=== PATIENT | female | born 1950 ===

== ENCOUNTER 2017-04-01 11:56 | Observation (INO) | payer MEDICARE, MEDICAID ==
[2017-04-01 12:10] VITALS: BMI 28.5
[2017-04-01 12:40] LABS: BASO % 0.4 % (0.0-2.0); EOS # 0.1 K/uL (0.0-0.7); EOS % 0.8 % (0.0-4.0); HEMATOCRIT 31.3 % (34.0-47.0); LYMPH # 1.9 K/uL (1.0-4.3); LYMPH % 21.8 % (20.0-40.0); MEAN CELL VOLUME 72.4 fl (81.0-99.0); MEAN CORPUSCULAR HEMOGLOBIN 22.9 pg (27.0-31.0); MEAN CORPUSCULAR HGB CONC 31.7 g/dL (33.0-37.0); MEAN PLATELET VOLUME 7.7 fl (7.2-11.7); MONO # 0.8 K/uL (0.0-0.8); MONO % 8.8 % (0.0-10.0); NEUT # 5.8 K/uL (1.8-7.0); NEUT % 68.2 % (50.0-75.0); NRBC % 0.1 % (0.0-0.0); RED CELL DISTRIBUTION WIDTH 17.4 % (11.5-14.5); WHITE BLOOD COUNT 8.6 K/uL (4.8-10.8)
--- NOTE | 2017-04-01 12:40 | ED PDOC ---
HPI: General Adult Time Seen by Provider: 04/01/17 11:56 Chief Complaint (Nursing): Weakness/Neurological Deficit Chief Complaint (Provider): Weakness/Neurological Deficit History Per: Patient History/Exam Limitations: no limitations Onset/Duration Of Symptoms: Days (x2 days) Current Symptoms Are (Timing): Still Present Additional Complaint(s): 66 y/o female with a past medical history of diabetes, hypertension, and hypercholesterolemia who presents to the emergency department with a complaint of intermittent chest discomfort describes as a pressure-like sensation x2 days. Associated with generalized fatigue, left arm pain and right-sided facial numbness. Denies history of myocardial infraction, changes in speech or gait and weakness in the arms or legs. NIHSS Stroke Scale - Date/Time Evaluation Performed Date Performed: 04/01/17 When Was NIHSS Performed: Baseline - How Severe is the Stroke Level of Consciousness: 0=Alert LOC to Questions: 0=Both comments correct LOC to commands: 0=Obeys both correctly Visual: 0=No visual loss Facial: 0=Normal Motor Arm - Left: 0=No drift Motor Arm - Right: 0=No drift Motor Leg - Left: 0=No drift Motor Leg - Right: 0=No drift Limb Ataxia: 0=Absent Sensory: 0=Normal Best Language: 0=No aphasia Dysarthia: 0=Normal articulation Extinction & Inattention (Neglect): 0=Normal, no object Past Medical History Reviewed: Historical Data, Nursing Documentation, Vital Signs Vital Signs: Last Vital Signs Temp 97 F L 04/01/17 12:09 Pulse 89 04/01/17 12:09 Resp BP 151/71 H 04/01/17 12:09 Pulse Ox 100 04/01/17 13:55 - Medical History PMH: Anemia, Arthritis, Asthma, Bronchitis, COPD, Diverticulitis, Emphysema, HTN , Hypercholesterolemia, Pneumonia - Surgical History Surgical History: Endoscopy (05/07/14) Denies: Appendectomy, CABG, Carotid Endarterectomy, Cholecystectomy, Coronary Stent, Pacemaker, Tonsillectomy Other surgeries: Patient stated " I had over 17 surgies including left knee, hysterectomy, and back surgery." - Family History Family History: States: Unknown Family Hx - Social History Current smoker - smoking cessation education provided: No Alcohol: None Drugs: Denies - Home Medications Home Medications: Ambulatory Orders Medication Instructions Recorded Clonazepam [Klonopin] 1 tab PO BID #0 tablet 03/22/16 Linaclotide [Linzess] 1 tab PO DAILY #0 capsule 03/22/16 Montelukast [Singulair] 1 tab PO DAILY #0 tab 03/22/16 Omeprazole 20 mg PO DAILY #0 capsule. 03/22/16 SITagliptin [Januvia] 1 tab PO DAILY #0 tab 03/22/16 Diltiazem HCl [Cartia Xt] 1 tab PO BID 08/31/16 Fluticasone/Salmeterol 250/50 1 puff IH Q12 08/31/16 [Advair Diskus 250/50] Gabapentin [Neurontin] 400 mg PO TID 08/31/16 Lactulose [Generlac] 15 mg PO TID 08/31/16 MetFORMIN [glucoPHAGE] 1,000 mg PO BID 08/31/16 Valsartan/Hydrochlorothiazide 1 tab PO DAILY 08/31/16 [Valsartan-Hctz 320-25 mg Tab] traMADol [Ultram] 1 tab PO BID 08/31/16 oxyCODONE/Acetaminophen [Percocet 1 tab PO Q6 PRN #20 tab 09/02/16 5/325 mg Tab] traMADol [Ultram] 50 mg PO BID #60 tab 09/02/16 - Allergies Allergies/Adverse Reactions: Allergies Allergy/AdvReac Type Severity Reaction Status Date / Time No Known Allergies Allergy Verified 10/20/15 14:05 Review of Systems ROS Statement: Except As Marked, All Systems Reviewed And Found Negative Constitutional: Positive for: Other (Generalized fatigue) Cardiovascular: Positive for: Other (Chest pressure discomfort) Musculoskeletal: Positive for: Arm Pain (Left), Other (Right-sided facial numbness) Neurological: Negative for: Weakness (Of the arms or legs), Other (Abnormal speech or gait. ) Physical Exam - Reviewed Nursing Documentation Reviewed: Yes Vital Signs Reviewed: Yes - Physical Exam Appears: Positive for: Non-toxic, No Acute Distress Head Exam: Positive for: ATRAUMATIC, NORMAL INSPECTION, NORMOCEPHALIC Skin: Positive for: Normal Color, Warm, Dry Eye Exam: Positive for: Normal appearance, EOMI, PERRL Neck: Positive for: Normal, Supple Cardiovascular/Chest: Positive for: Regular Rate, Rhythm. Negative for: Murmur Respiratory: Positive for: Normal Breath Sounds. Negative for: Accessory Muscle Use, Respiratory Distress Gastrointestinal/Abdominal: Positive for: Normal Exam, Soft. Negative for: Tenderness Extremity: Positive for: Normal ROM, Other (5/5 strength of all extremities. ). Negative for: Tenderness, Pedal Edema, Swelling Neurologic/Psych: Positive for: Alert, sand drier II-XII (Intact. Finger to nose test intact. ), Oriented (x3), Cerebellar Tests (Normal), Gait (Steady), Other ( Normal speech. Speaking in full sentences. ) - Laboratory Results Result Diagrams: 04/01/17 12:30 04/01/17 12:30 - ECG ECG Rhythm: Positive for: Normal QRS, Normal ST Segment, Sinus Rhythm (Normal at 75 bpm). Negative for: ST/T Changes, Nonspecific Changes O2 Sat by Pulse Oximetry: 100 (RA) Pulse Ox Interpretation: Normal - Progress ED Course And Treament: ASA 324 MG X 1 DOSE D/W DR. BREAUX ADMIT TO HER SERVIE TELE OBS Medical Decision Making Medical Decision Making: Time: 12:23 Initial impression: Chest discomfort with left arm pain and right sided facial numbness Initial plan: --Head CT --EKG --BMP --Magnesium --Troponin I --CBC w/ diff --Chest x-ray --Reevaluation Time: 13:06 --Aspirin 324 mg PO Time: 12:54 --Head CT FINDINGS: HEMORRHAGE: No intracranial hemorrhage. BRAIN: Will-white matter differentiation is preserved. There is no mass, mass effect or abnormal extra-axial fluid collection. There are mild chronic microangiopathic changes. There is no territorial infarction. VENTRICLES: The ventricles are normal in size, shape and configuration. CALVARIUM: The skull base and calvarium are normal. There is hyperostosis frontalis interna. PARANASAL SINUSES: Predominantly clear. MASTOID AIR CELLS: Predominantly clear. OTHER FINDINGS: None. IMPRESSION: No acute intracranial abnormality. If there is a persistent focal neurologic deficit and an ongoing clinical concern for acute infarction, an MRI of the brain without intravenous contrast would be a more sensitive modality for evaluation of hyperacute/acute ischemic infarction. Mild chronic microangiopathic changes. Time: 13:21 --Chest x-ray FINDINGS: LUNGS: The lungs are well inflated and clear. PLEURA: No significant pleural effusion identified, no pneumothorax apparent. CARDIOVASCULAR: Normal. OSSEOUS STRUCTURES: No significant abnormalities. VISUALIZED UPPER ABDOMEN: Normal. OTHER FINDINGS: None. IMPRESSION: No active pulmonary disease. Time: 1340 --Spoke to Dr. Zimmerman, request possible for admission. Time: 13:51 --Cardiology Consult Routine under Dr. Humberto Serrano for Chest pain Time: 13:52 --Admit to hospital routine: Observation in Telemetry for chest pain and facial numbness right under the care of Dr. Breaux (Hospitalist). Scribe Attestation: Documented by Nichole Munguia, acting as a scribe for Willy Samano MD. Provider Scribe Attestation: All medical record entries made by the Scribe were at my direction and personally dictated by me. I have reviewed the chart and agree that the record accurately reflects my personal performance of the history, physical exam, medical decision making, and the department course for this patient. I have also personally directed, reviewed, and agree with the discharge instructions and disposition. Disposition - Clinical Impression Clinical Impression: Chest pain, Facial paresthesia - Patient ED Disposition Is Patient to be Admitted: Yes (Admitted to Dr. Breaux for observation in Telemetry ) - Disposition Disposition Time: 13:52 Condition: STABLE Forms: [facility] [facility] (Polish)
[2017-04-01 12:46] LABS: BLOOD UREA NITROGEN 15 mg/dl (7-17); CALCIUM 10.6 mg/dL (8.4-10.2); CARBON DIOXIDE 22 mmol/L (22-30); CHLORIDE 102 mmol/L (98-107); GFR AFRICAN-AMERICAN > 60; GLUCOSE,RANDOM 103 mg/dL (65-105); MAGNESIUM 2.1 MG/DL (1.6-2.3); POTASSIUM 4.7 MMOL/L (3.6-5.0); SODIUM 138 mmol/l (132-148)
--- NOTE | 2017-04-01 13:01 | CT ---
PROCEDURE: CT HEAD WITHOUT CONTRAST. HISTORY: facial numbness right sided COMPARISON: None available. TECHNIQUE: Axial computed tomography images were obtained through the head/brain without intravenous contrast. Radiation dose: Total exam DLP = 804.27. MGy-cm. This CT exam was performed using one or more of the following dose reduction techniques: Automated exposure control, adjustment of the mA and/or kV according to patient size, and/or use of iterative reconstruction technique. FINDINGS: HEMORRHAGE: No intracranial hemorrhage. BRAIN: Will-white matter differentiation is preserved. There is no mass, mass effect or abnormal extra-axial fluid collection. There are mild chronic microangiopathic changes. There is no territorial infarction. VENTRICLES: The ventricles are normal in size, shape and configuration. CALVARIUM: The skull base and calvarium are normal. There is hyperostosis frontalis interna. PARANASAL SINUSES: Predominantly clear. MASTOID AIR CELLS: Predominantly clear. OTHER FINDINGS: None. IMPRESSION: No acute intracranial abnormality. If there is a persistent focal neurologic deficit and an ongoing clinical concern for acute infarction, an MRI of the brain without intravenous contrast would be a more sensitive modality for evaluation of hyperacute/acute ischemic infarction. Mild chronic microangiopathic changes.
--- NOTE | 2017-04-01 13:23 | RAD ---
HISTORY: Chest pain COMPARISON: 03/21/2016. FINDINGS: LUNGS: The lungs are well inflated and clear. PLEURA: No significant pleural effusion identified, no pneumothorax apparent. CARDIOVASCULAR: Normal. OSSEOUS STRUCTURES: No significant abnormalities. VISUALIZED UPPER ABDOMEN: Normal. OTHER FINDINGS: None. IMPRESSION: No active pulmonary disease.
--- NOTE | 2017-04-01 13:53 | CP.PCM.HP ---
History of Present Illness - History of Present Illness History of Present Illness: CC: shortness of breath HPI: 66F PMH known COPD asthma DM HTN dyslipdemia SBO presents with a two day history of 2 episodes of mild pressure like nonradiating chest pain that lasted for a few moments each time, associated with fatigue. Patient states she also had mild paresthesia on her right cheek, she has a history of cervical radiculopathy. No other complaints at this time, HD stable, no acute distress ROS: per HPI 12 systems reviewed and negative PMH: COPD asthma HTN dyslipdemia SBO PSH: hemicolectomy? , hysterectomy, multiple orthopedic surgeries FH:denies SH: denies tobacco, ETOH, IVDU Meds: as below Allergies: NKDA PMD Dr. Zimmerman Vitals: reviewed and stable Temp Pulse Resp BP Pulse Ox 97 F L 89 151/71 H 100 04/01/17 12:09 04/01/17 12:09 04/01/17 12:09 04/01/17 13:52 Exam: GENERAL APPEARANCE: Well developed, well nourished, alert and cooperative HEAD: normocephalic.atraumatic. EYES: PERRL, EOMI. vision is grossly intact. EARS: External auditory canals clear, hearing grossly intact. NOSE: No nasal discharge. THROAT: Oral cavity and pharynx normal. No inflammation, swelling, exudate, or lesions. NECK: Neck supple, non-tender without lymphadenopathy, masses or thyromegaly. CARDIAC: Normal S1 and S2.Rhythm is regular. There is no peripheral edema, cyanosis or pallor. Extremities are warm and well perfused. LUNGS:+rhonchi, no respiratory distress ABDOMEN: Positive bowel sounds. Soft, nondistended, nontender. No guarding or rebound. No masses. MUSCULOSKELETAL: Adequately aligned spine. ROM intact spine and extremities. No joint erythema or tenderness. Normal muscular development. BACK: Examination of the spine reveals normal posture, no spinal deformity, symmetry of spinal muscles, without tenderness, decreased range of motion or muscular spasm. EXTREMITIES: No significant deformity or joint abnormality. No edema. Peripheral pulses intact. No varicosities. NEUROLOGICAL:Strength and sensation symmetric and intact throughout. Reflexes 2 + throughout. SKIN: Skin normal color, texture and turgor with no lesions or eruptions. PSYCHIATRIC: normal mood, normal affect Labs:as below 04/01/17 12:30 04/01/17 12:30 Rads: CXR no active disease EKG: NSR, no acute ischemia or infarct Clonazepam [Klonopin] 1 tab PO BID MetFORMIN [glucOPHAGE] 1,000 mg PO BID 04/01/17 21:00 Fluticasone/Salmeterol 250/50 [Advair Diskus 250/50] 1 puff IH Q12 04/02/17 09:00 Aspirin [Aspirin Chewable] 81 mg PO DAILY Atorvastatin [Lipitor] 40 mg PO DAILY Clopidogrel [Plavix] 75 mg PO DAILY Enoxaparin [Lovenox] 40 mg SC DAILY Linaclotide [Linzess] 1 tab PO DAILY Montelukast [Singulair] 1 mg PO DAILY Valsartan/Hydrochlorothiazide [Valsartan-Hctz 320-25 mg Tab] 1 tab PO DAILY diltiaZEM CD [Cardizem CD] 1 mg PO DAILY Assessment: 66F PMH known COPD asthma DM HTN dyslipdemia SBO presents with a two day history of 2 episodes of mild pressure like nonradiating chest pain that lasted for a few moments each time, associated with fatigue. Patient states she also had mild paresthesia on her right cheek, she has a history of cervical radiculopathy. No other complaints at this time, HD stable, no acute distress Plan: CHEST PAIN no active chest pain ASA, Plavix, Statin Trend cardiac enzymes EKG in AM. No acute changes on EKG COPD stable continue Advair, Singulair, broncodilators as necessary HTN continue cardizem, valsartan HYPERLIPIDEMIA continue statin DM continue Metformin ISS VTE ppx Lovenox Present on Admission - Present on Admission Any Indicators Present on Admission: No Past Patient History - Infectious Disease Hx of Infectious Diseases: None - Past Medical History & Family History Past Medical History?: Yes - Past Social History Alcohol: None Drugs: Denies - CARDIAC Hx Hypercholesterolemia: Yes Hx Hypertension: Yes Hx Pacemaker: No - PULMONARY Hx Asthma: Yes Hx Bronchitis: Yes Hx Chronic Obstructive Pulmonary Disease (COPD): Yes Hx Emphysema: Yes Hx Pneumonia: Yes - NEUROLOGICAL Hx Neurological Disorder: No - HEENT Hx HEENT Problems: No Hx Cataracts: Yes - HEMATOLOGICAL/ONCOLOGICAL Hx Anemia: Yes - INTEGUMENTARY Hx Dermatological Problems: No - MUSCULOSKELETAL/RHEUMATOLOGICAL Hx Arthritis: Yes - GASTROINTESTINAL Hx Diverticulitis: Yes - GENITOURINARY/GYNECOLOGICAL Hx Genitourinary Disorders: Yes (S/P Sling procedure for cystoceles) - PSYCHIATRIC Hx Emotional Abuse: No Hx Physical Abuse: No Hx Substance Use: No - SURGICAL HISTORY Hx Appendectomy: No Hx Carotid Endarterectomy: No Hx Cholecystectomy: No Hx Coronary Artery Bypass Graft: No Hx Coronary Stent: No Hx Tonsillectomy: No - ANESTHESIA Hx Anesthesia: Yes Hx Anesthesia Reactions: No Hx Malignant Hyperthermia: No Meds Allergies/Adverse Reactions: Allergies Allergy/AdvReac Type Severity Reaction Status Date / Time No Known Allergies Allergy Verified 10/20/15 14:05 Results - Vital Signs Recent Vital Signs: Last Vital Signs Temp 97 F L 04/01/17 12:09 Pulse 89 04/01/17 12:09 Resp BP 151/71 H 04/01/17 12:09 Pulse Ox 100 04/01/17 13:47 - Labs Result Diagrams: 04/01/17 12:30 04/01/17 12:30 Labs: Laboratory Results - last 24 hr 04/01/17 04/01/17 12:30 12:30 WBC 8.6 RBC 4.33 Hgb 9.9 L Hct 31.3 L MCV 72.4 L D MCH 22.9 L MCHC 31.7 L RDW 17.4 H Plt Count 338 MPV 7.7 Neut % (Auto) 68.2 Lymph % (Auto) 21.8 [place] % (Auto) 8.8 Eos % (Auto) 0.8 Baso % (Auto) 0.4 Neut # 5.8 Lymph # 1.9 [place] # 0.8 Eos # 0.1 Baso # 0.0 Sodium 138 Potassium 4.7 Chloride 102 Carbon Dioxide 22 Anion Gap 18 BUN 15 Creatinine 0.8 Est GFR ( Amer) > 60 Est GFR (Non-Af Amer) > 60 Random Glucose 103 Calcium 10.6 H Magnesium 2.1 Troponin I < 0.0120
[2017-04-01] MEDS ORDERED: CLONAZEPAM PO SCH (17:00)
[2017-04-01] MEDS: Fluticasone-Salmeterol 250-50mcg Diskus IH SCH (21:38)
[2017-04-01] MEDS: Insulin Lispro (humaLOG) 100 Units/ml Inj SC SCH (21:54)
[2017-04-02 04:47] VITALS: O2SAT 98
[2017-04-02] MEDS: Insulin Lispro (humaLOG) 100 Units/ml Inj SC SCH (06:33)
[2017-04-02 07:02] LABS: HEMATOCRIT 28.7 % (34.0-47.0); MEAN CELL VOLUME 72.8 fl (81.0-99.0); MEAN CORPUSCULAR HEMOGLOBIN 22.8 pg (27.0-31.0); MEAN CORPUSCULAR HGB CONC 31.3 g/dL (33.0-37.0); RED CELL DISTRIBUTION WIDTH 17.4 % (11.5-14.5); WHITE BLOOD COUNT 6.6 K/uL (4.8-10.8)
[2017-04-02 07:11] LABS: BLOOD UREA NITROGEN 17 mg/dl (7-17); CALCIUM 9.9 mg/dL (8.4-10.2); CARBON DIOXIDE 24 mmol/L (22-30); CHLORIDE 103 mmol/L (98-107); CHOLESTEROL 208 mg/dL (0-199); GFR AFRICAN-AMERICAN > 60; GLUCOSE,RANDOM 93 mg/dL (65-105); POTASSIUM 4.5 MMOL/L (3.6-5.0); SODIUM 138 mmol/l (132-148)
[2017-04-02 08:14] VITALS: BP 126/77; PULSE 81; RESP 18; TEMP 98
[2017-04-02] MEDS: Fluticasone-Salmeterol 250-50mcg Diskus IH SCH (08:55)
[2017-04-02] MEDS ORDERED: diltiaZEM 240 mg/24 Hours CD Cap PO SCH ×2 (09:00)
[2017-04-02] MEDS ORDERED: Enoxaparin 40 mg Syringe SC SCH (09:00)
[2017-04-02] MEDS ORDERED: Patient's Own Med (Valsartan/Hydrochlorothiazide [Valsartan-Hctz 320-25 Mg Tab] 1 TAB) PO SCH (09:00)
[2017-04-02] MEDS ORDERED: LINACLOTIDE PO SCH (09:00)
--- NOTE | 2017-04-02 10:37 | CP.PCM.DIS ---
Provider - Provider Date of Admission: 04/01/17 13:52 Attending physician: Oumou Breaux DO Primary care physician: Dr. Zimmerman Time Spent in preparation of Discharge (in minutes): 20 Hospital Course - Lab Results Lab Results: Most Recent Lab Values WBC 6.6 K/uL (4.8-10.8) 04/02/17 05:30 RBC 3.95 Mil/uL (3.80-5.20) 04/02/17 05:30 Hgb 9.0 g/dL (12.0-16.0) L 04/02/17 05:30 Hct 28.7 % (34.0-47.0) L 04/02/17 05:30 MCV 72.8 fl (81.0-99.0) L 04/02/17 05:30 MCH 22.8 pg (27.0-31.0) L 04/02/17 05:30 MCHC 31.3 g/dL (33.0-37.0) L 04/02/17 05:30 RDW 17.4 % (11.5-14.5) H 04/02/17 05:30 Plt Count 293 K/uL (130-400) 04/02/17 05:30 MPV 7.7 fl (7.2-11.7) 04/01/17 12:30 Neut % (Auto) 68.2 % (50.0-75.0) 04/01/17 12:30 Lymph % (Auto) 21.8 % (20.0-40.0) 04/01/17 12:30 [place] % (Auto) 8.8 % (0.0-10.0) 04/01/17 12:30 Eos % (Auto) 0.8 % (0.0-4.0) 04/01/17 12:30 Baso % (Auto) 0.4 % (0.0-2.0) 04/01/17 12:30 Neut # 5.8 K/uL (1.8-7.0) 04/01/17 12:30 Lymph # 1.9 K/uL (1.0-4.3) 04/01/17 12:30 [place] # 0.8 K/uL (0.0-0.8) 04/01/17 12:30 Eos # 0.1 K/uL (0.0-0.7) 04/01/17 12:30 Baso # 0.0 K/uL (0.0-0.2) 04/01/17 12:30 Sodium 138 mmol/l (132-148) 04/02/17 05:30 Potassium 4.5 MMOL/L (3.6-5.0) 04/02/17 05:30 Chloride 103 mmol/L (98-107) 04/02/17 05:30 Carbon Dioxide 24 mmol/L (22-30) 04/02/17 05:30 Anion Gap 16 (10-20) 04/02/17 05:30 BUN 17 mg/dl (7-17) 04/02/17 05:30 Creatinine 0.8 mg/dL (0.7-1.2) 04/02/17 05:30 Est GFR ( Amer) > 60 04/02/17 05:30 Est GFR (Non-Af Amer) > 60 04/02/17 05:30 POC Glucose (mg/dL) 83 mg/dL (65-110) 04/02/17 05:04 Random Glucose 93 mg/dL (65-105) 04/02/17 05:30 Calcium 9.9 mg/dL (8.4-10.2) 04/02/17 05:30 Magnesium 2.1 MG/DL (1.6-2.3) 04/01/17 12:30 Troponin I < 0.0120 ng/mL (0.00-0.120) 04/02/17 05:30 Triglycerides 188 mg/DL (0-149) H D 04/02/17 05:30 Cholesterol 208 mg/dL (0-199) H 04/02/17 05:30 LDL Cholesterol Direct 140 mg/dL (0-129) H 04/02/17 05:30 HDL Cholesterol 34 MG/DL (30-70) 04/02/17 05:30 - Hospital Course Hospital Course: 66 y/o F with PMH of COPD asthma DM HTN dyslipdemia SBO presented with a two day history of 2 episodes of mild pressure like nonradiating chest pain that lasted for a few moments each time, associated with fatigue. Patient states she also had mild paresthesia on her right cheek, she has a history of cervical radiculopathy. No other complaints at this time, HD stable, no acute distress. patient was placed on observation in telemetry for chest pain r/o ACS,. Tele monitor showed and EKG changes,Trop x3 were negative m ches t pain resolved ACs ruled out. Will discahrge patient home Follow [facility] PMD Dr. Zimmerman Resume all home meds 1.CHEST PAIN , ACS ruled out on ASA, Plavix, Statin 2.COPD stable continue Advair, Singulair, broncodilators as necessary 3.HTN continue cardizem, valsartan controlled 4.HYPERLIPIDEMIA continue statin 5.DM continue Metformin ISS controlled 6. Anemia unclear etiology follow up with PMD Discharge Exam - Head Exam Head Exam: ATRAUMATIC, NORMAL INSPECTION, NORMOCEPHALIC - Eye Exam Eye Exam: EOMI, PERRL Pupil Exam: NORMAL ACCOMODATION - ENT Exam ENT Exam: Mucous Membranes Moist, Normal Exam - Neck Exam Neck exam: Full Rom, Normal Inspection - Respiratory Exam Respiratory Exam: Clear to PA & Lateral, NORMAL BREATHING PATTERN. absent: Rhonchi, Wheezes - Cardiovascular Exam Cardiovascular Exam: REGULAR RHYTHM, RRR, +S1, +S2. absent: JVD - GI/Abdominal Exam GI & Abdominal Exam: Normal Bowel Sounds, Soft. absent: Distended, Guarding, Rebound, Tenderness - Rectal Exam Rectal Exam: Deferred - Extremities Exam Extremities exam: normal capillary refill, normal inspection, pedal pulses present - Back Exam Back exam: NORMAL INSPECTION - Neurological Exam Neurological exam: Alert, CN II-XII Intact, Oriented x3, Reflexes Normal - Psychiatric Exam Psychiatric exam: Normal Affect - Skin Skin Exam: Dry, Pallor, Warm Discharge Plan - Follow Up Plan Condition: STABLE Disposition: HOME/ ROUTINE Patient education suggested?: Yes Instructions: Chest Pain (DC) Referrals: Lon Zimmerman MD [Family Provider] -
--- NOTE | 2017-04-03 11:00 | CARD ---
APPROVED REPORT EKG Measurement Heart [id number] <Conclusion> Normal sinus rhythm Possible Anterior infarct, age undetermined Abnormal ECG
--- NOTE | 2017-04-03 11:08 | CARD ---
APPROVED REPORT EKG Measurement Heart [id number] <Conclusion> Normal sinus rhythm with sinus arrhythmia Normal ECG
== END 2017-04-02 12:18 | disposition home or self-care (01) ==
LOC: H.ER 11:56 → H.ERHOLD 13:52 → H.TEL 16:32
PROVIDERS: ADMIT Student in an Organized Health Care Education/Training Program; ATTEND Student in an Organized Health Care Education/Training Program
DX: R07.9 Chest pain, unspecified (principal); I10 Essential (primary) hypertension; D64.9 Anemia, unspecified; E11.9 Type 2 diabetes mellitus without complications; R20.0 Anesthesia of skin; E78.5 Hyperlipidemia, unspecified; J44.9 Chronic obstructive pulmonary disease, unspecified; M19.90 Unspecified osteoarthritis, unspecified site; Z87.01 Personal history of pneumonia (recurrent)
CPT/HCPCS: 36415; 70450; 71010; 80048; 80061; 82948; 83735; 84484; 85025; 85027; 99285; G0378; J1650

== ENCOUNTER 2018-12-07 13:43 | Inpatient (IN) | payer MEDICAID, MEDICARE, OTHER ==
[2018-12-07 13:44] VITALS: BMI 28.5
[2018-12-07] MEDS ORDERED: Albuterol-Ipratrop 3 mg / 0.5 (3 ml) UD INH STA ×2 (15:20)
[2018-12-07 15:45] LABS: BASO % 0.6 % (0.0-2.0); EOS # 0.2 K/uL (0.0-0.7); EOS % 3.1 % (0.0-4.0); LYMPH # 1.3 K/uL (1.0-4.3); LYMPH % 21.3 % (20.0-40.0); MEAN CELL VOLUME 85.7 fl (81.0-99.0); MEAN CORPUSCULAR HEMOGLOBIN 28.5 pg (27.0-31.0); MEAN CORPUSCULAR HGB CONC 33.2 g/dL (33.0-37.0); MEAN PLATELET VOLUME 7.2 fl (7.2-11.7); MONO # 0.6 K/uL (0.0-0.8); MONO % 10.2 % (0.0-10.0); NEUT # 3.8 K/uL (1.8-7.0); NEUT % 64.8 % (50.0-75.0); NRBC % 0.1 % (0.0-0.0); RBC 4.37 Mil/uL (3.80-5.20); RED CELL DISTRIBUTION WIDTH 14.7 % (11.5-14.5); WHITE BLOOD COUNT 5.9 K/uL (4.8-10.8)
[2018-12-07] MEDS ORDERED: Albuterol-Ipratrop 3 mg / 0.5 (3 ml) UD ONE ×2 (15:47→18:24)
[2018-12-07 15:56] LABS: VENOUS BLOOD GAS BASE EXCESS 7.2 mmol/L (0.0-2.0); VENOUS BLOOD GAS PCO2 51 mmHg (40-60); VENOUS BLOOD GAS PO2 14 mm/Hg (30-55); VENOUS BLOOD PH 7.42 (7.32-7.43)
[2018-12-07 15:57] LABS: HEMOGLOBIN 12.4 g/dL (12.0-16.0)
[2018-12-07 16:05] LABS: ALB/GLOB RATIO 1.3 (1.0-2.1); ALBUMIN 4.3 g/dL (3.5-5.0); ALT/SGPT 19 U/L (9-52); AST/SGOT 34 U/L (14-36); BLOOD UREA NITROGEN 10 mg/dl (7-17); CALCIUM 9.3 mg/dL (8.4-10.2); GFR NON-AFRICAN AMERICAN > 60
--- NOTE | 2018-12-07 17:32 | RAD ---
Date of service: 12/07/2018 HISTORY: cough, fever COMPARISON: Comparison is made to the previous study dated 04/01/2017 TECHNIQUE: Chest PA and lateral views FINDINGS: LUNGS: No evidence of new infiltrate or consolidation in the lungs. PLEURA: No significant pleural effusion identified. No pneumothorax apparent. CARDIOVASCULAR: No aortic atherosclerotic calcification present. Normal cardiac size. No pulmonary vascular congestion. OSSEOUS STRUCTURES: No significant abnormalities. VISUALIZED UPPER ABDOMEN: Normal. OTHER FINDINGS: None. IMPRESSION: No radiographic evidence of pneumonia.
[2018-12-07 18:11] LABS: ABG ALLEN TEST YES; ARTERIAL BLOOD GAS HCO3 26.8 mmol/L (21-28); ARTERIAL BLOOD GAS HEMOGLOBIN 12.2 g/dL (11.7-17.4); ARTERIAL BLOOD GAS O2 CAPACITY 16.3 mL/dL (16-24); ARTERIAL BLOOD GAS O2 CONTENT 15.8 ML/dL (15-23); ARTERIAL BLOOD GAS O2 SAT 96.8 % (95-98); ARTERIAL BLOOD GAS PCO2 36 mm/Hg (35-45); ARTERIAL BLOOD GAS PH 7.47 (7.35-7.45); ARTERIAL BLOOD GAS PO2 60 mm/Hg (80-100); ARTERIAL BLOOD GAS TCO2 27.3 mmol/L (22-28)
--- NOTE | 2018-12-07 18:42 | ED PDOC ---
HPI: CCC, URI, Sore Throat Time Seen by Provider: 12/07/18 14:18 Chief Complaint (Nursing): Cough, Cold, Congestion Chief Complaint (Provider): Cough History Per: Patient History/Exam Limitations: no limitations Onset/Duration Of Symptoms: Days Ear Symptoms: Bilateral: None Additional Complaint(s): 68 yo female with HTN, DM, cOPD/asthma presents for evaluation of cough x 3 days. PT states she felt feverish yesterday, she did not take her temperature and reports feeling improvement after tylenol. PT states she has not used duoneb at home today for symptoms. Pt reports central chest pain only when coughing. PT states she feels like she has phlegm but cannot get it up. [facility] hospital admission April 2017 in [place]. Past Medical History Reviewed: Historical Data, Nursing Documentation, Vital Signs Vital Signs: Last Vital Signs Temp 99.2 F 12/07/18 18:29 Pulse 77 12/07/18 18:29 Resp 18 12/07/18 18:29 BP 122/61 12/07/18 18:29 Pulse Ox 96 12/07/18 18:29 Primary Care Provider: FAMILY PROVIDER,NO - Medical History PMH: Anemia, Arthritis, Asthma, Bronchitis, COPD, Diabetes, Diverticulitis, Emphysema, HTN, Hypercholesterolemia, Pneumonia Denies: Chronic Kidney Disease - Surgical History Surgical History: Endoscopy (05/07/14) Denies: Appendectomy, CABG, Carotid Endarterectomy, Cholecystectomy, Coronary Stent, Pacemaker, Tonsillectomy - Family History Family History: States: Unknown Family Hx - Home Medications Home Medications: Ambulatory Orders Medication Instructions Recorded Atorvastatin [Lipitor] 40 mg PO DAILY 12/07/18 Diltiazem HCl [Diltiazem 24Hr ER] 360 mg PO DAILY 12/07/18 Gabapentin [Neurontin] 800 mg PO DAILY 12/07/18 Lorazepam [Ativan] 2 mg PO HS 12/07/18 Losartan Potassium [Cozaar] 100 mg PO DAILY 12/07/18 Metformin HCl [Glucophage] 500 mg PO BID 12/07/18 Montelukast [Singulair] 10 mg PO DAILY 12/07/18 hydroCHLOROthiazide [Hydrodiuril] 25 mg PO DAILY 12/07/18 - Allergies Allergies/Adverse Reactions: Allergies Allergy/AdvReac Type Severity Reaction Status Date / Time No Known Allergies Allergy Verified 10/20/15 14:05 Curb-65 Severity Score - CURB-65 Severity Score Confusion: No Bun >19mg/dl (>7mmol/L): No Respiratory Rate greater than/equal to 30: No Systolic BP <90 or Diastolic BP less than/equal 60mmHg: No Age >64: Yes Curb-65 Score: 1 Percentage 30-day mortality: 2.7% Review of Systems ROS Statement: Except As Marked, All Systems Reviewed And Found Negative Constitutional: Positive for: Fever Respiratory: Positive for: Cough, Wheezing. Negative for: Shortness of Breath, Sputum Physical Exam - Reviewed Nursing Documentation Reviewed: Yes Vital Signs Reviewed: Yes - Physical Exam Appears: Positive for: Well, Non-toxic, No Acute Distress Head Exam: Positive for: ATRAUMATIC, NORMAL INSPECTION, NORMOCEPHALIC Skin: Positive for: Normal Color, Warm, DRY Eye Exam: Positive for: Normal appearance ENT: Positive for: Normal ENT Inspection Neck: Positive for: Normal, Painless ROM Cardiovascular/Chest: Positive for: Regular Rate, Rhythm Respiratory: Positive for: Rhonchi, Wheezing. Negative for: Normal Breath Sounds, Respiratory Distress Gastrointestinal/Abdominal: Positive for: Normal Exam, Soft Back: Positive for: Normal Inspection Extremity: Positive for: Normal ROM Neurological/Psych: Positive for: Awake, Alert, Normal Tone - Laboratory Results Result Diagrams: 12/07/18 15:36 12/07/18 15:36 Lab Results: pCO2 36 mm/Hg (35-45) 12/07/18 17:52 pO2 60 mm/Hg (80-100) L 12/07/18 17:52 HCO3 26.8 mmol/L (21-28) 12/07/18 17:52 ABG pH 7.47 (7.35-7.45) H 12/07/18 17:52 ABG Total CO2 27.3 mmol/L (22-28) 12/07/18 17:52 ABG O2 Saturation 96.8 % (95-98) 12/07/18 17:52 ABG O2 Content 15.8 ML/dL (15-23) 12/07/18 17:52 ABG Base Excess 2.6 mmol/L (-2.0-3.0) 12/07/18 17:52 ABG Hemoglobin 12.2 g/dL (11.7-17.4) 12/07/18 17:52 ABG Carboxyhemoglobin 2.4 % (0.5-1.5) H 12/07/18 17:52 POC ABG HHb (Measured) 3.0 % (0.0-5.0) 12/07/18 17:52 ABG Methemoglobin 2.5 % (0.0-3.0) 12/07/18 17:52 ABG O2 Capacity 16.3 mL/dL (16-24) 12/07/18 17:52 Harris Test Yes 12/07/18 17:52 VBG pH 7.42 (7.32-7.43) 12/07/18 15:47 VBG pCO2 51 mmHg (40-60) 12/07/18 15:47 VBG HCO3 28.4 mmol/L 12/07/18 15:47 VBG Total CO2 34.7 mmol/L (22-28) H 12/07/18 15:47 VBG O2 Sat (Calc) 19.2 % (40-65) L 12/07/18 15:47 VBG Base Excess 7.2 mmol/L (0.0-2.0) H 12/07/18 15:47 VBG Potassium 4.8 mmol/L (3.6-5.2) 12/07/18 15:47 A-a O2 Difference 45.0 mm/Hg 12/07/18 17:52 Hgb O2 Saturation 92.1 % (95.0-98.0) L 12/07/18 17:52 Sodium 135.0 mmol/L (132-148) 12/07/18 15:47 Chloride 99.0 mmol/L (98-107) 12/07/18 15:47 Glucose 104 mg/dL (65-105) 12/07/18 15:47 Lactate 1.1 mmol/L (0.7-2.1) 12/07/18 15:47 FiO2 21.0 % 12/07/18 17:52 Troponin I < 0.0120 ng/mL (0.00-0.120) 12/07/18 15:36 Total Bilirubin 0.3 mg/dl (0.2-1.3) 12/07/18 15:36 AST 34 U/L (14-36) 12/07/18 15:36 ALT 19 U/L (9-52) 12/07/18 15:36 Alkaline Phosphatase 88 U/L (38-126) 12/07/18 15:36 Total Protein 7.7 G/DL (6.3-8.2) 12/07/18 15:36 Albumin 4.3 g/dL (3.5-5.0) 12/07/18 15:36 Globulin 3.4 gm/dL (2.2-3.9) 12/07/18 15:36 Albumin/Globulin Ratio 1.3 (1.0-2.1) 12/07/18 15:36 - ECG O2 Sat by Pulse Oximetry: 96 Pulse Ox Interpretation: Normal Medical Decision Making Medical Decision Making: Continued Rhonchi and wheezing diffuse bilateral after 3 duonebs and IV solumedrol. Lactic acid normal. No fever in ER. CXR without pneumonia. ABG - O2 60 Pt will be admitted for COPD exacerbation and hypoxemia. Dr. Schaffer discussed case with Dr. Brar. Disposition - Clinical Impression Clinical Impression: COPD exacerbation, Hypoxemia - Patient ED Disposition Is Patient to be Admitted: No - Disposition Referrals: FAMILY PROVIDER,NO [Primary Care Provider] - Disposition: Routine/Home Disposition Time: 18:45 Condition: STABLE
[2018-12-07] MEDS ORDERED: Azithromycin 500 MG in Sodium Chloride 0.9% 250 ML IVPB ONE (18:45)
[2018-12-07] MEDS ORDERED: Azithromycin 500 MG IV IVPB ONE (18:47)
[2018-12-07] MEDS ORDERED: cefTRIAXone (Rocephin) 1 gm Inj ONE (20:36)
[2018-12-08 06:08] LABS: URINE BILIRUBIN NEGATIVE (NEGATIVE); URINE BLOOD NEGATIVE (NEGATIVE); URINE CLARITY CLEAR (Clear); URINE COLOR YELLOW (YELLOW); URINE GLUCOSE (UA) 50 mg/dL (NEGATIVE); URINE LEUKOCYTE ESTERASE NEG Leu/uL (Negative); URINE PROTEIN NEGATIVE (NEGATIVE); URINE UROBILINOGEN 0.2-1.0 mg/dL (0.2-1.0)
[2018-12-08 06:48] LABS: BASO % 0.2 % (0.0-2.0); HEMOGLOBIN 11.5 g/dL (12.0-16.0); LYMPH # 0.6 K/uL (1.0-4.3); LYMPH % 11.8 % (20.0-40.0); MEAN CELL VOLUME 85.2 fl (81.0-99.0); MEAN CORPUSCULAR HEMOGLOBIN 28.2 pg (27.0-31.0); MEAN CORPUSCULAR HGB CONC 33.1 g/dL (33.0-37.0); MEAN PLATELET VOLUME 7.5 fl (7.2-11.7); MONO # 0.2 K/uL (0.0-0.8); MONO % 3.3 % (0.0-10.0); NEUT % 84.7 % (50.0-75.0); RBC 4.08 Mil/uL (3.80-5.20); RED CELL DISTRIBUTION WIDTH 15.3 % (11.5-14.5); WHITE BLOOD COUNT 4.7 K/uL (4.8-10.8)
[2018-12-08 06:55] LABS: ALB/GLOB RATIO 1.2 (1.0-2.1); ALT/SGPT 22 U/L (9-52); AST/SGOT 25 U/L (14-36); BLOOD UREA NITROGEN 14 mg/dl (7-17); CALCIUM 9.3 mg/dL (8.4-10.2); GFR NON-AFRICAN AMERICAN > 60; HDL CHOLESTEROL 32 MG/DL (30-70)
[2018-12-08] MEDS: Albuterol-Ipratrop 3 mg / 0.5 (3 ml) UD INH SCH ×3 (07:02→19:08)
[2018-12-08 07:06] LABS: LDL CHOLESTEROL 87 mg/dL (0-129)
[2018-12-08] MEDS ORDERED: MethylPREDNISolone 40 mg Vial IVP SCH (09:00)
[2018-12-08] MEDS: diltiaZEM 180 mg/24 Hours CD Cap PO SCH (09:35)
[2018-12-08] MEDS: Insulin Lispro (humaLOG) 100 Units/ml Inj SC SCH ×4 (09:37→21:52)
[2018-12-08] MEDS: guaiFENesin-DM 600-30 mg ER Tab PO SCH ×2 (09:52→17:38)
--- NOTE | 2018-12-08 11:52 | CARD ---
APPROVED REPORT Date of service: 12/07/2018 EKG Measurement Heart [id number] OR 200P [id number] <Conclusion> Sinus rhythm with marked sinus arrhythmia Otherwise normal ECG
--- NOTE | 2018-12-08 12:34 | CARD ---
APPROVED REPORT Date of service: 12/08/2018 EXAM: Two-dimensional and M-mode echocardiogram with Doppler and color Doppler. Other Information Quality : GoodRhythm : NSR INDICATION Chest Pain 2D DIMENSIONS IVSd1.29 (0.7-1.1cm)LVDd3.79 (3.9-5.9cm) PWd0.94 (0.7-1.1cm)IVSs1.66 (0.8-1.2cm) LA Fshvwv06 (18-58mL)LVDs2.59 (2.5-4.0cm) FS (%) 31.7 %PWs1.18 (0.8-1.2cm) SV49.93 mlLVEF (%)62.5 (>50%) CO3.77 L/min M-Mode DIMENSIONS Left Atrium (MM)3.57 (2.5-4.0cm)Aortic Root2.40 (2.2-3.7cm) Aortic Cusp Exc.1.60 (1.5-2.0cm) Aortic Valve AoV Peak Kummoxwd047.6cm/sAoV VTI36.7cmAO Peak GR.13mmHg LVOT Peak Gquojkci122.9cm/sLVOT VTI22.39cmAO Mean GR.6mmHg Mitral Valve MV E Ovboslok56.8cm/sMV DECEL [id number] A Qsbrgdhv959.2cm/s MV ARF51saT/A ratio0.7MVA (PHT)3.70cm2 TDI Lateral E' Peak V11.41cm/sMedial E' Peak V10.51cm/sE/Lateral E'7.3 E/Medial E'7.9 Tricuspid Valve TR Peak Blqmcydp170on/sTR Peak Gr.12naKwSERZ48mlOe LEFT VENTRICLE The left ventricle is normal size. There is normal left ventricular wall thickness. The left ventricular systolic function is normal. The estimated ejection fraction is 60-65% No regional wall motion abnormalities noted.. Transmitral Doppler flow pattern is Grade I-abnormal relaxation pattern. No left ventricle thrombus noted on this study. There is no ventricular septal defect visualized. There is no left ventricular aneurysm. There is no mass noted in the left ventricle. RIGHT VENTRICLE The right ventricle is normal size. There is normal right ventricular wall thickness. The right ventricular systolic function is normal. ATRIA The left atrium size is normal. The right atrium size is normal. The interatrial septum is intact with no evidence for an atrial septal defect. AORTIC VALVE The aortic valve is normal in structure. No aortic regurgitation is present. There is no aortic valvular stenosis. There is no aortic valvular vegetation. MITRAL VALVE The mitral valve is normal in structure. There is no evidence of mitral valve prolapse. There is no mitral valve stenosis. There is trace mitral valve regurgitation noted. TRICUSPID VALVE The tricuspid valve is normal in structure. There is mild tricuspid valve regurgitation noted. RVSP is calculated at 25 mm Hg. There is no tricuspid valve prolapse or vegetation. There is no tricuspid valve stenosis. PULMONIC VALVE The pulmonary valve is normal in structure. There is no pulmonic valvular regurgitation. There is no pulmonic valvular stenosis. GREAT VESSELS The aortic root is normal in size. The ascending aorta is normal in size. The pulmonary artery is normal. The IVC is normal in size and collapses >50% with inspiration. PERICARDIAL EFFUSION There is no pericardial effusion. There is no pleural effusion. <Conclusion> The estimated ejection fraction is 60-65% Transmitral Doppler flow pattern is Grade I-abnormal relaxation pattern. The left atrium size is normal. There is trace mitral valve regurgitation noted. There is mild tricuspid valve regurgitation noted. RVSP is calculated at 25 mm Hg.
[2018-12-08] MEDS: Acetylcysteine 20% Inhal Soln (4ml) PO SCH ×2 (13:01→19:08)
--- NOTE | 2018-12-08 17:16 | CP.PCM.HP ---
History of Present Illness - History of Present Illness History of Present Illness: CC: Cough. 68 y/o F, with multiple chronic medical conditions including: COPD, Asthma, Emphysema, DMII, Hypercholesterolemia, HTN, O/A. Pt came to ER [facility], [place] on to be evaluated for a non relief intractable dry cough, unable to bring up phlegms, for 3 days [employer], associated to mild SOB, wheezing and low tactile fever while at home. Worsening symptoms: Chest discomfort increased when coughing, insomnia 2nd to cough. Found with pO2: 14 Aggravated factor: Exercise, ADL's. Pt denied: High fever, chills, n/v/d, abdominal pain, urinary symptoms, CP, palpitations, dizziness, syncope, sick contact, recent travel out of [facility]. CXR: No evidence of PNA. EKG: Sinus rhythm with marked sinus arrhythmia. Echo: LVEF: 60-65%, trace mitral valve regurgitation, mild tricuspid valve regurgitation. Present on Admission - Present on Admission Any Indicators Present on Admission: No Review of Systems - Constitutional Constitutional: Other (negative) - EENT Eyes: Other (negative) Ears: Other (negative) Nose/Mouth/Throat: Other (negative) - Cardiovascular Cardiovascular: Other (negative) - Respiratory Respiratory: Cough, Dyspnea, Wheezing, Pain with Coughing - Gastrointestinal Gastrointestinal: Other (negative) - Genitourinary Genitourinary: Other (negative) - Musculoskeletal Musculoskeletal: Arthralgias - Integumentary Integumentary: Other (negative) - Neurological Neurological: Other (negative) - Psychiatric Psychiatric: Abnormal Sleep Pattern (2nd to clinical condiiton.) - Endocrine Endocrine: Other (negative) - Hematologic/Lymphatic Hematologic: Other (negative) Past Patient History - Infectious Disease Hx of Infectious Diseases: None - Past Medical History & Family History Past Medical History?: Yes Pertinent Family History: Unknown - Past Social History Smoking Status: Never Smoked Alcohol: None Drugs: Denies Home Situation {Lives}: Alone - CARDIAC Hx Cardiac Disorders: Yes Hx Hypercholesterolemia: Yes Hx Hypertension: Yes Hx Pacemaker: No - PULMONARY Hx Respiratory Disorders: Yes Hx Asthma: Yes Hx Bronchitis: Yes Hx Chronic Obstructive Pulmonary Disease (COPD): Yes Hx Emphysema: Yes Hx Pneumonia: Yes - NEUROLOGICAL Hx Neurological Disorder: No - HEENT Hx HEENT Problems: Yes Hx Cataracts: Yes - RENAL Hx Chronic Kidney Disease: No - ENDOCRINE/METABOLIC Hx Endocrine Disorders: Yes Hx Diabetes Mellitus Type 2: Yes - HEMATOLOGICAL/ONCOLOGICAL Hx Blood Disorders: Yes Hx Anemia: Yes - INTEGUMENTARY Hx Dermatological Problems: No - MUSCULOSKELETAL/RHEUMATOLOGICAL Hx Musculoskeletal Disorders: Yes Hx Arthritis: Yes Hx Falls: No - GASTROINTESTINAL Hx Gastrointestinal Disorders: Yes Hx Diverticulitis: Yes - GENITOURINARY/GYNECOLOGICAL Hx Genitourinary Disorders: Yes (S/P Sling procedure for cystoceles) - PSYCHIATRIC Hx Psychophysiologic Disorder: No Hx Emotional Abuse: No Hx Physical Abuse: No Hx Substance Use: No - SURGICAL HISTORY Hx Surgeries: Yes Hx Appendectomy: No Hx Cataract Extraction: Yes Hx Carotid Endarterectomy: No Hx Cholecystectomy: No Hx Coronary Artery Bypass Graft: No Hx Coronary Stent: No Hx Hysterectomy: Yes Hx Joint Replacement: Yes (L TKR 2003) Hx Orthopedic Surgery: Yes ( lumbar Fusion with laminectomy 2013. S/P Diskectomy x2. L ankle sx.) Hx Tonsillectomy: No Other/Comment: Laparoscopic Ventral Hernia repair. Colonoscopy 6 months ago. - ANESTHESIA Hx Anesthesia: Yes Hx Anesthesia Reactions: No Hx Malignant Hyperthermia: No Meds Allergies/Adverse Reactions: Allergies Allergy/AdvReac Type Severity Reaction Status Date / Time No Known Allergies Allergy Verified 10/20/15 14:05 Physical Exam - Constitutional Appears: No Acute Distress - Head Exam Head Exam: NORMAL INSPECTION - Eye Exam Eye Exam: PERRL - ENT Exam ENT Exam: Normal Exam - Neck Exam Neck exam: Positive for: Normal Inspection - Respiratory Exam Respiratory Exam: Decreased Breath Sounds (b/l), Rhonchi (scattered) - Cardiovascular Exam Cardiovascular Exam: REGULAR RHYTHM - GI/Abdominal Exam GI & Abdominal Exam: Normal Bowel Sounds, Soft - Extremities Exam Extremities exam: Positive for: normal inspection - Back Exam Back exam: NORMAL INSPECTION - Neurological Exam Neurological exam: Alert, Oriented x3 - Psychiatric Exam Psychiatric exam: Normal Mood - Skin Skin Exam: Warm Results - Vital Signs Recent Vital Signs: Last Vital Signs Temp 98.0 F 12/08/18 16:09 Pulse 67 12/08/18 16:09 Resp 18 12/08/18 16:09 BP 110/64 12/08/18 16:09 Pulse Ox 97 12/08/18 16:09 reviewed J.PAnisa - Labs Result Diagrams: 12/08/18 04:35 12/08/18 04:35 Labs: Laboratory Results - last 24 hr 12/07/18 12/08/18 12/08/18 17:52 01:00 04:35 WBC 4.7 L RBC 4.08 Hgb 11.5 L Hct 34.8 MCV 85.2 MCH 28.2 MCHC 33.1 RDW 15.3 H Plt Count 199 MPV 7.5 Neut % (Auto) 84.7 H Lymph % (Auto) 11.8 L [place] % (Auto) 3.3 Eos % (Auto) 0.0 Baso % (Auto) 0.2 Neut # (Auto) 4.0 Lymph # (Auto) 0.6 L [place] # (Auto) 0.2 Eos # (Auto) 0.0 Baso # (Auto) 0.0 pCO2 36 pO2 60 L HCO3 26.8 ABG pH 7.47 H ABG Total CO2 27.3 ABG O2 Saturation 96.8 ABG O2 Content 15.8 ABG Base Excess 2.6 ABG Hemoglobin 12.2 ABG Carboxyhemoglobin 2.4 H POC ABG HHb (Measured) 3.0 ABG Methemoglobin 2.5 ABG O2 Capacity 16.3 Harris Test Yes A-a O2 Difference 45.0 Hgb O2 Saturation 92.1 L FiO2 21.0 Sodium Potassium Chloride Carbon Dioxide Anion Gap BUN Creatinine Est GFR ( Amer) Est GFR (Non-Af Amer) POC Glucose (mg/dL) Random Glucose Calcium Phosphorus Total Bilirubin AST ALT Alkaline Phosphatase Troponin I < 0.0120 Total Protein Albumin Globulin Albumin/Globulin Ratio Triglycerides Cholesterol LDL Cholesterol Direct HDL Cholesterol TSH 3rd Generation Urine Color Urine Clarity Urine pH Ur Specific [place] Urine Protein Urine Glucose (UA) Urine Ketones Urine Blood Urine Nitrate Urine Bilirubin Urine Urobilinogen Ur Leukocyte Esterase Urine RBC (Auto) Urine Microscopic WBC 12/08/18 12/08/18 12/08/18 04:35 05:48 05:55 WBC RBC Hgb Hct MCV MCH MCHC RDW Plt Count MPV Neut % (Auto) Lymph % (Auto) [place] % (Auto) Eos % (Auto) Baso % (Auto) Neut # (Auto) Lymph # (Auto) [place] # (Auto) Eos # (Auto) Baso # (Auto) pCO2 pO2 HCO3 ABG pH ABG Total CO2 ABG O2 Saturation ABG O2 Content ABG Base Excess ABG Hemoglobin ABG Carboxyhemoglobin POC ABG HHb (Measured) ABG Methemoglobin ABG O2 Capacity Harris Test A-a O2 Difference Hgb O2 Saturation FiO2 Sodium 136 Potassium 4.7 Chloride 98 Carbon Dioxide 27 Anion Gap 16 BUN 14 Creatinine 0.5 L Est GFR ( Amer) > 60 Est GFR (Non-Af Amer) > 60 POC Glucose (mg/dL) 202 H Random Glucose 194 H Calcium 9.3 Phosphorus 2.9 Total Bilirubin 0.2 AST 25 ALT 22 Alkaline Phosphatase 73 Troponin I Total Protein 7.2 Albumin 4.0 Globulin 3.2 Albumin/Globulin Ratio 1.2 Triglycerides 65 D Cholesterol 133 LDL Cholesterol Direct 87 HDL Cholesterol 32 TSH 3rd Generation 0.25 L Urine Color Yellow Urine Clarity Clear Urine pH 6.0 Ur Specific [place] 1.018 Urine Protein Negative Urine Glucose (UA) 50 Urine Ketones Negative Urine Blood Negative Urine Nitrate Negative Urine Bilirubin Negative Urine Urobilinogen 0.2-1.0 Ur Leukocyte Esterase Neg Urine RBC (Auto) 1 Urine Microscopic WBC < 1 12/08/18 08:30 WBC RBC Hgb Hct MCV MCH MCHC RDW Plt Count MPV Neut % (Auto) Lymph % (Auto) [place] % (Auto) Eos % (Auto) Baso % (Auto) Neut # (Auto) Lymph # (Auto) [place] # (Auto) Eos # (Auto) Baso # (Auto) pCO2 pO2 HCO3 ABG pH ABG Total CO2 ABG O2 Saturation ABG O2 Content ABG Base Excess ABG Hemoglobin ABG Carboxyhemoglobin POC ABG HHb (Measured) ABG Methemoglobin ABG O2 Capacity Harris Test A-a O2 Difference Hgb O2 Saturation FiO2 Sodium Potassium Chloride Carbon Dioxide Anion Gap BUN Creatinine Est GFR ( Amer) Est GFR (Non-Af Amer) POC Glucose (mg/dL) Random Glucose Calcium Phosphorus Total Bilirubin AST ALT Alkaline Phosphatase Troponin I < 0.0120 Total Protein Albumin Globulin Albumin/Globulin Ratio Triglycerides Cholesterol LDL Cholesterol Direct HDL Cholesterol TSH 3rd Generation Urine Color Urine Clarity Urine pH Ur Specific [place] Urine Protein Urine Glucose (UA) Urine Ketones Urine Blood Urine Nitrate Urine Bilirubin Urine Urobilinogen Ur Leukocyte Esterase Urine RBC (Auto) Urine Microscopic WBC reviewed J.P. - EKG Data EKG comments: reviewed J.P. - Imaging and Cardiology Chest x-ray Status: Report reviewed by me (J.P.) Echocardiogram Status: Report reviewed by me Assessment & Plan (1) COPD exacerbation Status: Acute Priority: High (2) Hypoxemia Status: Acute Priority: High (3) Hyperglycemia Status: Acute Priority: High (4) DM type 2 (diabetes mellitus, type 2) Status: Chronic Priority: Medium (5) HTN (hypertension) Status: Chronic Priority: Low - Assessment and Plan (Free Text) Plan: F/U Sputum C-S, continue Nebulizer Tx, Solu-Medrol, Tessalon Perles, Mucinex, Singulair, Insulin and rest of Tx. PT tseringal. - Date & Time Date: 12/08/18 Time: 14:30
[2018-12-08] MEDS: MethylPREDNISolone 40 mg Vial IVP SCH ×2 (17:39→21:21)
[2018-12-09] MEDS: Albuterol-Ipratrop 3 mg / 0.5 (3 ml) UD INH SCH ×4 (01:00→19:11)
[2018-12-09] MEDS: MethylPREDNISolone 40 mg Vial IVP SCH ×4 (04:54→21:18)
[2018-12-09] MEDS: Acetylcysteine 20% Inhal Soln (4ml) PO SCH (07:08)
[2018-12-09] MEDS: diltiaZEM 180 mg/24 Hours CD Cap PO SCH (08:10)
[2018-12-09] MEDS: guaiFENesin-DM 600-30 mg ER Tab PO SCH ×2 (08:11→16:31)
[2018-12-09] MEDS: Insulin Lispro (humaLOG) 100 Units/ml Inj SC SCH ×4 (08:13→21:21)
--- NOTE | 2018-12-09 17:31 | CP.PCM.PN ---
Subjective - Date & Time of Evaluation Date of Evaluation: 12/09/18 Time of Evaluation: 15:30 - Subjective Subjective: F/U COPD Exacerbation. Dry cough, not bringing up phlegms, chest congestion Objective - Vital Signs/Intake and Output Vital Signs (last 24 hours): Temp Pulse Resp BP Pulse Ox 97.7 F 63 18 113/65 98 12/09/18 16:14 12/09/18 16:14 12/09/18 16:14 12/09/18 16:14 12/09/18 16:14 - Medications Medications: Current Medications Acetylcysteine (Acetylcysteine 20%) 2 ml INH RBID [facility] Albuterol/Ipratropium (Duoneb 3 Mg/0.5 Mg (3 Ml) Ud) 3 ml INH RQ6 [facility] Last Admin: 12/09/18 13:18 Dose: 3 ml Atorvastatin Calcium (Lipitor) 40 mg PO DAILY [facility] Last Admin: 12/09/18 08:14 Dose: 40 mg Benzonatate (Tessalon Perles) 100 mg PO Q8 PRN PRN Reason: Cough Last Admin: 12/08/18 13:45 Dose: 100 mg Diltiazem HCl (Cardizem Cd) 360 mg PO DAILY [facility] Last Admin: 12/09/18 08:10 Dose: 360 mg Gabapentin (Neurontin) 800 mg PO DAILY [facility] Last Admin: 12/09/18 08:14 Dose: 800 mg Guaifenesin/Dextromethorphan (Mucinex-Dm 600-30 Mg) 1 tab PO BID [facility] Last Admin: 12/09/18 16:31 Dose: 1 tab Hydrochlorothiazide (Hydrodiuril) 25 mg PO DAILY [facility] Last Admin: 12/09/18 08:11 Dose: 25 mg Insulin Human Lispro (Humalog) 0 units SC ACHS [facility]; Protocol Last Admin: 12/09/18 16:30 Dose: 2 units Lorazepam (Ativan) 2 mg PO HS [facility] Last Admin: 12/08/18 21:23 Dose: 2 mg Losartan Potassium (Cozaar) 100 mg PO DAILY [facility] Last Admin: 12/09/18 08:11 Dose: 100 mg Metformin HCl (Glucophage) 500 mg PO BID [facility] Last Admin: 12/09/18 16:31 Dose: 500 mg Methylprednisolone (Solu-Medrol) 40 mg IVP Q6 [facility] Last Admin: 12/09/18 16:31 Dose: 40 mg Montelukast Sodium (Singulair) 10 mg PO DAILY [facility] Last Admin: 12/09/18 08:12 Dose: 10 mg - Labs Labs: 12/08/18 04:35 12/08/18 04:35 - Constitutional Appears: No Acute Distress - Head Exam Head Exam: NORMAL INSPECTION - Eye Exam Eye Exam: PERRL - ENT Exam ENT Exam: Normal Exam - Neck Exam Neck Exam: Normal Inspection - Respiratory Exam Respiratory Exam: Decreased Breath Sounds (b/l), Rhonchi (b/l), Wheezes (scattered) - Cardiovascular Exam Cardiovascular Exam: REGULAR RHYTHM - GI/Abdominal Exam GI & Abdominal Exam: Soft, Normal Bowel Sounds - Extremities Exam Extremities Exam: Normal Inspection - Back Exam Back Exam: NORMAL INSPECTION - Neurological Exam Neurological Exam: Alert, Oriented x3 - Psychiatric Exam Psychiatric exam: Normal Mood - Skin Skin Exam: Warm Assessment and Plan (1) COPD exacerbation Status: Acute (2) Hypoxemia Status: Acute (3) Hyperglycemia Status: Acute (4) DM type 2 (diabetes mellitus, type 2) Status: Chronic (5) HTN (hypertension) Status: Chronic - Assessment and Plan (Free Text) Plan: Continue Duoneb, Solu-Medrol, Mucinex, Singulair and rest of Tx.
[2018-12-09] MEDS: Acetylcysteine 20% Inhal Soln (4ml) INH SCH (19:11)
[2018-12-10] MEDS: Albuterol-Ipratrop 3 mg / 0.5 (3 ml) UD INH SCH ×4 (01:00→19:07)
[2018-12-10] MEDS: MethylPREDNISolone 40 mg Vial IVP SCH ×4 (03:53→21:46)
[2018-12-10] MEDS: Acetylcysteine 20% Inhal Soln (4ml) INH SCH ×2 (07:43→19:07)
[2018-12-10] MEDS: guaiFENesin-DM 600-30 mg ER Tab PO SCH ×2 (10:12→16:23)
[2018-12-10] MEDS: Insulin Lispro (humaLOG) 100 Units/ml Inj SC SCH ×4 (10:17→21:44)
[2018-12-10] MEDS: diltiaZEM 180 mg/24 Hours CD Cap PO SCH (10:19)
--- NOTE | 2018-12-10 14:16 | CP.PCM.PN ---
Subjective - Date & Time of Evaluation Date of Evaluation: 12/10/18 Time of Evaluation: 11:00 - Subjective Subjective: F/U COPD Exacerbation Dry cough improved, less chest congestion. Objective - Vital Signs/Intake and Output Vital Signs (last 24 hours): Temp Pulse Resp BP Pulse Ox 97.9 F 72 18 153/73 H 94 L 12/10/18 11:55 12/10/18 11:55 12/10/18 11:55 12/10/18 11:55 12/10/18 11:55 - Medications Medications: Current Medications Acetaminophen (Tylenol 325mg Tab) 650 mg PO Q6 PRN PRN Reason: Pain, Mild (1-3) Last Admin: 12/10/18 11:42 Dose: 650 mg Acetylcysteine (Acetylcysteine 20%) 2 ml INH RBID [facility] Last Admin: 12/10/18 07:43 Dose: 2 ml Albuterol/Ipratropium (Duoneb 3 Mg/0.5 Mg (3 Ml) Ud) 3 ml INH RQ6 [facility] Last Admin: 12/10/18 07:43 Dose: 3 ml Atorvastatin Calcium (Lipitor) 40 mg PO DAILY [facility] Last Admin: 12/10/18 10:14 Dose: 40 mg Benzonatate (Tessalon Perles) 100 mg PO Q8 PRN PRN Reason: Cough Last Admin: 12/08/18 13:45 Dose: 100 mg Budesonide (Pulmicort Respules) 0.5 mg IH RBID [facility] Diltiazem HCl (Cardizem Cd) 360 mg PO DAILY [facility] Last Admin: 12/10/18 10:19 Dose: 360 mg Gabapentin (Neurontin) 800 mg PO DAILY [facility] Last Admin: 12/10/18 10:14 Dose: 800 mg Guaifenesin/Dextromethorphan (Mucinex-Dm 600-30 Mg) 1 tab PO BID [facility] Last Admin: 12/10/18 10:12 Dose: 1 tab Hydrochlorothiazide (Hydrodiuril) 25 mg PO DAILY [facility] Last Admin: 12/10/18 10:13 Dose: 25 mg Insulin Human Lispro (Humalog) 0 units SC ACHS [facility]; Protocol Last Admin: 12/10/18 11:43 Dose: 5 units Lorazepam (Ativan) 2 mg PO HS [facility] Last Admin: 12/09/18 21:17 Dose: 2 mg Losartan Potassium (Cozaar) 100 mg PO DAILY [facility] Last Admin: 12/10/18 10:18 Dose: 100 mg Metformin HCl (Glucophage) 500 mg PO BID [facility] Last Admin: 12/10/18 10:18 Dose: 500 mg Methylprednisolone (Solu-Medrol) 40 mg IVP Q6 [facility] Last Admin: 12/10/18 10:13 Dose: 40 mg Montelukast Sodium (Singulair) 10 mg PO DAILY [facility] Last Admin: 12/10/18 10:15 Dose: 10 mg - Labs Labs: 12/08/18 04:35 12/08/18 04:35 - Constitutional Appears: No Acute Distress - Head Exam Head Exam: NORMAL INSPECTION - Eye Exam Eye Exam: PERRL - ENT Exam ENT Exam: Normal Exam - Neck Exam Neck Exam: Normal Inspection - Respiratory Exam Respiratory Exam: Decreased Breath Sounds (b/l ), Rhonchi (scattered) - Cardiovascular Exam Cardiovascular Exam: REGULAR RHYTHM - GI/Abdominal Exam GI & Abdominal Exam: Soft, Normal Bowel Sounds - Extremities Exam Extremities Exam: Normal Inspection - Back Exam Back Exam: NORMAL INSPECTION - Neurological Exam Neurological Exam: Alert, Oriented x3 - Psychiatric Exam Psychiatric exam: Normal Mood - Skin Skin Exam: Warm Assessment and Plan (1) COPD exacerbation Status: Acute (2) Hypoxemia Status: Acute (3) Hyperglycemia Status: Acute (4) DM type 2 (diabetes mellitus, type 2) Status: Chronic (5) HTN (hypertension) Status: Chronic - Assessment and Plan (Free Text) Plan: Continue Duoneb, Solu-Medrol, Mucinex, Singulair, add Pulmicort
[2018-12-10] MEDS: Budesonide 0.5 mg/2 ml Inhal Susp UD IH SCH (19:07)
[2018-12-11] MEDS: Albuterol-Ipratrop 3 mg / 0.5 (3 ml) UD INH SCH ×4 (01:07→19:03)
[2018-12-11] MEDS: MethylPREDNISolone 40 mg Vial IVP SCH ×4 (04:06→21:36)
[2018-12-11] MEDS: Budesonide 0.5 mg/2 ml Inhal Susp UD IH SCH ×2 (07:28→19:03)
[2018-12-11] MEDS: Acetylcysteine 20% Inhal Soln (4ml) INH SCH ×2 (07:28→19:03)
[2018-12-11] MEDS: diltiaZEM 180 mg/24 Hours CD Cap PO SCH (09:16)
[2018-12-11] MEDS: guaiFENesin-DM 600-30 mg ER Tab PO SCH ×2 (09:18→16:03)
[2018-12-11] MEDS: Insulin Lispro (humaLOG) 100 Units/ml Inj SC SCH ×4 (09:20→22:44)
--- NOTE | 2018-12-11 13:19 | CP.PCM.PN ---
Subjective - Date & Time of Evaluation Date of Evaluation: 12/11/18 Time of Evaluation: 11:10 - Subjective Subjective: F/U COPD Exacerbation Breathing better, no SOB, occasional cough. Objective - Vital Signs/Intake and Output Vital Signs (last 24 hours): Temp Pulse Resp BP Pulse Ox 97.7 F 63 20 158/74 H 98 12/11/18 12:27 12/11/18 12:27 12/11/18 12:27 12/11/18 12:27 12/11/18 12:27 - Medications Medications: Current Medications Acetaminophen (Tylenol 325mg Tab) 650 mg PO Q6 PRN PRN Reason: Pain, Mild (1-3) Last Admin: 12/10/18 11:42 Dose: 650 mg Acetylcysteine (Acetylcysteine 20%) 2 ml INH RBID [facility] Last Admin: 12/11/18 07:28 Dose: 2 ml Albuterol/Ipratropium (Duoneb 3 Mg/0.5 Mg (3 Ml) Ud) 3 ml INH RQ6 [facility] Last Admin: 12/11/18 07:28 Dose: 3 ml Atorvastatin Calcium (Lipitor) 40 mg PO DAILY [facility] Last Admin: 12/11/18 09:18 Dose: 40 mg Benzonatate (Tessalon Perles) 100 mg PO Q8 PRN PRN Reason: Cough Last Admin: 12/10/18 16:42 Dose: 100 mg Budesonide (Pulmicort Respules) 0.5 mg IH RBID [facility] Last Admin: 12/11/18 07:28 Dose: 0.5 mg Diltiazem HCl (Cardizem Cd) 360 mg PO DAILY [facility] Last Admin: 12/11/18 09:16 Dose: Not Given Gabapentin (Neurontin) 800 mg PO DAILY [facility] Last Admin: 12/11/18 09:19 Dose: 800 mg Guaifenesin/Dextromethorphan (Mucinex-Dm 600-30 Mg) 1 tab PO BID [facility] Last Admin: 12/11/18 09:18 Dose: 1 tab Hydrochlorothiazide (Hydrodiuril) 25 mg PO DAILY [facility] Last Admin: 12/11/18 09:18 Dose: 25 mg Insulin Human Lispro (Humalog) 0 units SC ACHS [facility]; Protocol Last Admin: 12/11/18 11:56 Dose: 5 units Lorazepam (Ativan) 2 mg PO HS [facility] Last Admin: 12/10/18 21:44 Dose: 2 mg Losartan Potassium (Cozaar) 100 mg PO DAILY [facility] Last Admin: 12/11/18 09:17 Dose: 100 mg Metformin HCl (Glucophage) 500 mg PO BID [facility] Last Admin: 12/11/18 09:18 Dose: 500 mg Methylprednisolone (Solu-Medrol) 40 mg IVP Q6 [facility] Last Admin: 12/11/18 09:19 Dose: 40 mg Montelukast Sodium (Singulair) 10 mg PO DAILY [facility] Last Admin: 12/11/18 09:19 Dose: 10 mg - Labs Labs: 12/08/18 04:35 12/08/18 04:35 - Constitutional Appears: No Acute Distress - Head Exam Head Exam: NORMAL INSPECTION - Eye Exam Eye Exam: PERRL - ENT Exam ENT Exam: Normal Exam - Neck Exam Neck Exam: Normal Inspection - Respiratory Exam Respiratory Exam: Decreased Breath Sounds (b/l), Rhonchi (scattered) - Cardiovascular Exam Cardiovascular Exam: REGULAR RHYTHM - GI/Abdominal Exam GI & Abdominal Exam: Soft, Normal Bowel Sounds - Extremities Exam Extremities Exam: Normal Inspection - Back Exam Back Exam: NORMAL INSPECTION - Neurological Exam Neurological Exam: Alert, Oriented x3 - Psychiatric Exam Psychiatric exam: Normal Mood - Skin Skin Exam: Warm Assessment and Plan (1) COPD exacerbation Status: Acute (2) Hypoxemia Status: Acute (3) Hyperglycemia Status: Acute (4) DM type 2 (diabetes mellitus, type 2) Status: Chronic (5) HTN (hypertension) Status: Chronic - Assessment and Plan (Free Text) Plan: COPD Exacerbation improved, continue Duoneb, Solu-Medrol, Pulmicort, Mucinex and rest of Tx.
[2018-12-12] MEDS: Albuterol-Ipratrop 3 mg / 0.5 (3 ml) UD INH SCH ×4 (01:03→19:17)
[2018-12-12] MEDS: MethylPREDNISolone 40 mg Vial IVP SCH (04:35)
[2018-12-12] MEDS: Budesonide 0.5 mg/2 ml Inhal Susp UD IH SCH ×2 (07:24→19:16)
[2018-12-12] MEDS: Acetylcysteine 20% Inhal Soln (4ml) INH SCH ×2 (07:24→19:17)
[2018-12-12] MEDS: diltiaZEM 180 mg/24 Hours CD Cap PO SCH (09:34)
[2018-12-12] MEDS: guaiFENesin-DM 600-30 mg ER Tab PO SCH ×2 (09:38→17:00)
[2018-12-12] MEDS: Insulin Lispro (humaLOG) 100 Units/ml Inj SC SCH ×5 (09:40→21:16)
[2018-12-12 09:53] LABS: HEMOGLOBIN 12.5 g/dL (12.0-16.0); MEAN CELL VOLUME 85.6 fl (81.0-99.0); MEAN CORPUSCULAR HEMOGLOBIN 27.7 pg (27.0-31.0); MEAN CORPUSCULAR HGB CONC 32.3 g/dL (33.0-37.0); RBC 4.51 Mil/uL (3.80-5.20); RED CELL DISTRIBUTION WIDTH 14.8 % (11.5-14.5); WHITE BLOOD COUNT 13.7 K/uL (4.8-10.8)
[2018-12-12 10:16] LABS: BLOOD UREA NITROGEN 26 mg/dl (7-17); CALCIUM 9.8 mg/dL (8.4-10.2); GFR NON-AFRICAN AMERICAN > 60
--- NOTE | 2018-12-12 11:12 | CP.PCM.PCO ---
Assessment/Plan - Assessment and Plan (Free Text) Assessment: Patient seen and examined this morning. VSS, denies chest pain shortness of breath nausea vomiting or diarrhea. Still with crackles bilaterally, blood sugars elevated in the 400s, will adjust insulin regimen. Steroids will be tapered. Noted to have some shortness of breath and weakness with ambulation to the bathroom. Can benefit from TCU for physical therapy, adjustment of steroids and insulin. Will refer. All discussed with Dr Brar who agrees.
[2018-12-12] MEDS ORDERED: Insulin Lispro (humaLOG) 100 Units/ml Inj SC ONE (13:30)
--- NOTE | 2018-12-12 15:37 | CP.PCM.PN ---
Subjective - Date & Time of Evaluation Date of Evaluation: 12/12/18 Time of Evaluation: 12:20 - Subjective Subjective: F/U COPD Exacerbation. Breathing better, no cough, weakness when walking with GONZALES Objective - Vital Signs/Intake and Output Vital Signs (last 24 hours): Temp Pulse Resp BP Pulse Ox 97.8 F 67 20 151/76 H 95 12/12/18 12:09 12/12/18 12:09 12/12/18 12:09 12/12/18 12:07 12/12/18 12:09 - Medications Medications: Current Medications Acetaminophen (Tylenol 325mg Tab) 650 mg PO Q6 PRN PRN Reason: Pain, Mild (1-3) Last Admin: 12/10/18 11:42 Dose: 650 mg Acetylcysteine (Acetylcysteine 20%) 2 ml INH RBID [facility] Last Admin: 12/12/18 07:24 Dose: 2 ml Albuterol/Ipratropium (Duoneb 3 Mg/0.5 Mg (3 Ml) Ud) 3 ml INH RQ6 [facility] Last Admin: 12/12/18 13:21 Dose: 3 ml Atorvastatin Calcium (Lipitor) 40 mg PO DAILY [facility] Last Admin: 12/12/18 09:38 Dose: 40 mg Benzonatate (Tessalon Perles) 100 mg PO Q8 PRN PRN Reason: Cough Last Admin: 12/12/18 15:18 Dose: 100 mg Budesonide (Pulmicort Respules) 0.5 mg IH RBID [facility] Last Admin: 12/12/18 07:24 Dose: 0.5 mg Diltiazem HCl (Cardizem Cd) 360 mg PO DAILY [facility] Last Admin: 12/12/18 09:34 Dose: 360 mg Gabapentin (Neurontin) 800 mg PO DAILY [facility] Last Admin: 12/12/18 09:37 Dose: 800 mg Guaifenesin/Dextromethorphan (Mucinex-Dm 600-30 Mg) 1 tab PO BID [facility] Last Admin: 12/12/18 09:38 Dose: 1 tab Hydrochlorothiazide (Hydrodiuril) 25 mg PO DAILY [facility] Last Admin: 12/12/18 09:39 Dose: 25 mg Insulin Human Lispro (Humalog) 0 units SC ACHS [facility]; Protocol Lorazepam (Ativan) 2 mg PO HS [facility] Last Admin: 12/11/18 21:36 Dose: 2 mg Losartan Potassium (Cozaar) 100 mg PO DAILY [facility] Last Admin: 12/12/18 09:34 Dose: 100 mg Metformin HCl (Glucophage) 500 mg PO BID [facility] Last Admin: 12/12/18 09:36 Dose: 500 mg Methylprednisolone (Solu-Medrol) 40 mg IVP Q8 [facility] Montelukast Sodium (Singulair) 10 mg PO DAILY [facility] Last Admin: 12/12/18 09:37 Dose: 10 mg - Labs Labs: 12/12/18 09:45 12/12/18 09:45 - Constitutional Appears: No Acute Distress - Head Exam Head Exam: NORMAL INSPECTION - Eye Exam Eye Exam: PERRL - ENT Exam ENT Exam: Normal Exam - Neck Exam Neck Exam: Normal Inspection - Respiratory Exam Respiratory Exam: Decreased Breath Sounds (at bases), Rhonchi (b/l scattered) - Cardiovascular Exam Cardiovascular Exam: REGULAR RHYTHM - GI/Abdominal Exam GI & Abdominal Exam: Soft, Normal Bowel Sounds - Extremities Exam Extremities Exam: Normal Inspection - Back Exam Back Exam: NORMAL INSPECTION - Neurological Exam Neurological Exam: Alert, Oriented x3 - Psychiatric Exam Psychiatric exam: Normal Mood - Skin Skin Exam: Warm Assessment and Plan (1) COPD exacerbation Status: Acute (2) Hypoxemia Status: Acute (3) Hyperglycemia Status: Acute (4) DM type 2 (diabetes mellitus, type 2) Status: Chronic (5) HTN (hypertension) Status: Chronic - Assessment and Plan (Free Text) Plan: PT evaluated by Physical Therapist, recommended FLYNN, BS 400 , luna steroids continue Duoneb and rest of tx.
[2018-12-12 16:26] VITALS: RESP 18
[2018-12-12] MEDS ORDERED: MethylPREDNISolone 40 mg Vial IVP SCH (17:00)
[2018-12-12 20:01] VITALS: BP 129/69; PULSE 71; TEMP 98.1; O2SAT 97
--- NOTE | 2018-12-12 22:29 | CP.PCM.DIS ---
Provider - Provider Date of Admission: 12/07/18 18:23 Attending physician: Juan Brar MD Primary care physician: ANGELA FAMILY PROVIDER Diagnosis - Discharge Diagnosis (1) COPD exacerbation Status: Acute Priority: High (2) Hypoxemia Status: Acute Priority: High (3) Hyperglycemia Status: Acute Priority: High (4) DM type 2 (diabetes mellitus, type 2) Status: Chronic Priority: Medium (5) HTN (hypertension) Status: Chronic Priority: Low Hospital Course - Lab Results Lab Results: Micro Results 12/07/18 16:30 Blood-Venous Blood Culture - Final NO GROWTH AFTER 5 DAYS 12/07/18 16:30 Blood-Venous Gram Stain - Final TEST NOT PERFORMED 12/07/18 16:45 Blood-Venous Blood Culture - Final NO GROWTH AFTER 5 DAYS 12/07/18 16:45 Blood-Venous Gram Stain - Final TEST NOT PERFORMED Most Recent Lab Values WBC 13.7 K/uL (4.8-10.8) H D 12/12/18 09:45 RBC 4.51 Mil/uL (3.80-5.20) 12/12/18 09:45 Hgb 12.5 g/dL (12.0-16.0) 12/12/18 09:45 Hct 38.6 % (34.0-47.0) 12/12/18 09:45 MCV 85.6 fl (81.0-99.0) 12/12/18 09:45 MCH 27.7 pg (27.0-31.0) 12/12/18 09:45 MCHC 32.3 g/dL (33.0-37.0) L 12/12/18 09:45 RDW 14.8 % (11.5-14.5) H 12/12/18 09:45 Plt Count 281 K/uL (130-400) 12/12/18 09:45 MPV 7.5 fl (7.2-11.7) 12/08/18 04:35 Neut % (Auto) 84.7 % (50.0-75.0) H 12/08/18 04:35 Lymph % (Auto) 11.8 % (20.0-40.0) L 12/08/18 04:35 Harmon % (Auto) 3.3 % (0.0-10.0) 12/08/18 04:35 Eos % (Auto) 0.0 % (0.0-4.0) 12/08/18 04:35 Baso % (Auto) 0.2 % (0.0-2.0) 12/08/18 04:35 Neut # (Auto) 4.0 K/uL (1.8-7.0) 12/08/18 04:35 Lymph # (Auto) 0.6 K/uL (1.0-4.3) L 12/08/18 04:35 Harmon # (Auto) 0.2 K/uL (0.0-0.8) 12/08/18 04:35 Eos # (Auto) 0.0 K/uL (0.0-0.7) 12/08/18 04:35 Baso # (Auto) 0.0 K/uL (0.0-0.2) 12/08/18 04:35 pCO2 36 mm/Hg (35-45) 12/07/18 17:52 pO2 60 mm/Hg (80-100) L 12/07/18 17:52 HCO3 26.8 mmol/L (21-28) 12/07/18 17:52 ABG pH 7.47 (7.35-7.45) H 12/07/18 17:52 ABG Total CO2 27.3 mmol/L (22-28) 12/07/18 17:52 ABG O2 Saturation 96.8 % (95-98) 12/07/18 17:52 ABG O2 Content 15.8 ML/dL (15-23) 12/07/18 17:52 ABG Base Excess 2.6 mmol/L (-2.0-3.0) 12/07/18 17:52 ABG Hemoglobin 12.2 g/dL (11.7-17.4) 12/07/18 17:52 ABG Carboxyhemoglobin 2.4 % (0.5-1.5) H 12/07/18 17:52 POC ABG HHb (Measured) 3.0 % (0.0-5.0) 12/07/18 17:52 ABG Methemoglobin 2.5 % (0.0-3.0) 12/07/18 17:52 ABG O2 Capacity 16.3 mL/dL (16-24) 12/07/18 17:52 Harris Test Yes 12/07/18 17:52 VBG pH 7.42 (7.32-7.43) 12/07/18 15:47 VBG pCO2 51 mmHg (40-60) 12/07/18 15:47 VBG HCO3 28.4 mmol/L 12/07/18 15:47 VBG Total CO2 34.7 mmol/L (22-28) H 12/07/18 15:47 VBG O2 Sat (Calc) 19.2 % (40-65) L 12/07/18 15:47 VBG Base Excess 7.2 mmol/L (0.0-2.0) H 12/07/18 15:47 VBG Potassium 4.8 mmol/L (3.6-5.2) 12/07/18 15:47 A-a O2 Difference 45.0 mm/Hg 12/07/18 17:52 Hgb O2 Saturation 92.1 % (95.0-98.0) L 12/07/18 17:52 Sodium 135.0 mmol/L (132-148) 12/07/18 15:47 Chloride 99.0 mmol/L (98-107) 12/07/18 15:47 Glucose 104 mg/dL (65-105) 12/07/18 15:47 Lactate 1.1 mmol/L (0.7-2.1) 12/07/18 15:47 FiO2 21.0 % 12/07/18 17:52 Sodium 131 mmol/l (132-148) L 12/12/18 09:45 Potassium 3.3 MMOL/L (3.6-5.0) L 12/12/18 09:45 Chloride 88 mmol/L (98-107) L 12/12/18 09:45 Carbon Dioxide 30 mmol/L (22-30) 12/12/18 09:45 Anion Gap 16 (10-20) 12/12/18 09:45 BUN 26 mg/dl (7-17) H 12/12/18 09:45 Creatinine 0.7 mg/dl (0.7-1.2) 12/12/18 09:45 Est GFR ( Amer) > 60 12/12/18 09:45 Est GFR (Non-Af Amer) > 60 12/12/18 09:45 POC Glucose (mg/dL) 205 mg/dL (65-110) H 12/12/18 16:07 Random Glucose 466 mg/dL (65-105) H* D 12/12/18 09:45 Hemoglobin A1c 6.1 % (4.2-6.5) 12/08/18 04:35 Calcium 9.8 mg/dL (8.4-10.2) 12/12/18 09:45 Phosphorus 2.9 mg/dl (2.5-4.5) 12/08/18 04:35 Total Bilirubin 0.2 mg/dl (0.2-1.3) 12/08/18 04:35 AST 25 U/L (14-36) 12/08/18 04:35 ALT 22 U/L (9-52) 12/08/18 04:35 Alkaline Phosphatase 73 U/L (38-126) 12/08/18 04:35 Troponin I < 0.0120 ng/mL (0.00-0.120) 12/08/18 08:30 Total Protein 7.2 G/DL (6.3-8.2) 12/08/18 04:35 Albumin 4.0 g/dL (3.5-5.0) 12/08/18 04:35 Globulin 3.2 gm/dL (2.2-3.9) 12/08/18 04:35 Albumin/Globulin Ratio 1.2 (1.0-2.1) 12/08/18 04:35 Triglycerides 65 mg/DL (0-149) D 12/08/18 04:35 Cholesterol 133 mg/dL (0-199) 12/08/18 04:35 LDL Cholesterol Direct 87 mg/dL (0-129) 12/08/18 04:35 HDL Cholesterol 32 MG/DL (30-70) 12/08/18 04:35 TSH 3rd Generation 0.25 mIU/ML (0.46-4.68) L 12/08/18 04:35 PTH Intact Whole Molec 72 pg/mL (14-64) H 12/08/18 04:35 Venous Blood Potassium 4.8 mmol/L (3.6-5.2) 12/07/18 15:47 Urine Color Yellow (YELLOW) 12/08/18 05:48 Urine Clarity Clear (Clear) 12/08/18 05:48 Urine pH 6.0 (5.0-8.0) 12/08/18 05:48 Ur Specific [place] 1.018 (1.003-1.030) 12/08/18 05:48 Urine Protein Negative mg/dL (NEGATIVE) 12/08/18 05:48 Urine Glucose (UA) 50 mg/dL (NEGATIVE) 12/08/18 05:48 Urine Ketones Negative mg/dL (NEGATIVE) 12/08/18 05:48 Urine Blood Negative (NEGATIVE) 12/08/18 05:48 Urine Nitrate Negative (NEGATIVE) 12/08/18 05:48 Urine Bilirubin Negative (NEGATIVE) 12/08/18 05:48 Urine Urobilinogen 0.2-1.0 mg/dL (0.2-1.0) 12/08/18 05:48 Ur Leukocyte Esterase Neg Sahra/uL (Negative) 12/08/18 05:48 Urine RBC (Auto) 1 /hpf (0-3) 12/08/18 05:48 Urine Microscopic WBC < 1 /hpf (0-5) 12/08/18 05:48 Discharge Exam - Head Exam Head Exam: NORMAL INSPECTION Discharge Plan - Discharge Medications Prescriptions: Insulin Lispro [Humalog (Insulin Lispro)] See Protocol SQ ACHS #1 cartridge - Follow Up Plan Condition: STABLE Disposition: TRANSF TO SNF Referrals: FAMILY PROVIDER,NO [Primary Care Provider] -
== END 2018-12-12 21:20 | DRG 192 ==
LOC: H.ER 13:43 → SUPCPDRO 13:43 → OBSVTOIN 18:23 → H.ERHOLD 18:23 → H.TEL 22:24 → OBSVTOIN 12-09 09:28 → INTOOBSV 12-09 09:28
PROVIDERS: ADMIT Internal Medicine Pulmonary Disease; ATTEND Internal Medicine Pulmonary Disease
PROC: 3E0F73Z Introduction of Anti-inflammatory into Respiratory Tract, Via Natural or Artificial Opening (ICD-10-PCS; principal; 2018-12-07)
DX: J44.1 Chronic obstructive pulmonary disease with (acute) exacerbation (principal); R09.02 Hypoxemia; E11.65 Type 2 diabetes mellitus with hyperglycemia; I10 Essential (primary) hypertension; E78.00 Pure hypercholesterolemia, unspecified; M19.90 Unspecified osteoarthritis, unspecified site; Z96.652 Presence of left artificial knee joint; Z87.01 Personal history of pneumonia (recurrent); Z79.84 Long term (current) use of oral hypoglycemic drugs

== ENCOUNTER 2018-12-12 15:05 | Inpatient (IN) | payer OTHER ==
[2018-12-12 21:38] VITALS: BMI 28.1
[2018-12-13] MEDS: MethylPREDNISolone 40 mg Vial IV SCH ×3 (00:39→17:10)
[2018-12-13] MEDS: Albuterol-Ipratrop 3 mg / 0.5 (3 ml) UD INH SCH ×5 (01:07→19:02)
[2018-12-13] MEDS: Insulin Lispro (humaLOG) 100 Units/ml Inj SC SCH ×4 (06:53→22:08)
[2018-12-13 06:58] LABS: HEMOGLOBIN 12.3 g/dL (12.0-16.0); MEAN CELL VOLUME 84.3 fl (81.0-99.0); MEAN CORPUSCULAR HEMOGLOBIN 28.3 pg (27.0-31.0); MEAN CORPUSCULAR HGB CONC 33.6 g/dL (33.0-37.0); RBC 4.36 Mil/uL (3.80-5.20); RED CELL DISTRIBUTION WIDTH 14.7 % (11.5-14.5); WHITE BLOOD COUNT 14.5 K/uL (4.8-10.8)
[2018-12-13 07:07] LABS: BLOOD UREA NITROGEN 30 mg/dl (7-17); GFR NON-AFRICAN AMERICAN > 60
[2018-12-13] MEDS: guaiFENesin-DM 600-30 mg ER Tab PO SCH ×2 (08:16→17:10)
[2018-12-13] MEDS: diltiaZEM 180 mg/24 Hours CD Cap PO SCH (08:18)
[2018-12-13] MEDS: Budesonide 0.5 mg/2 ml Inhal Susp UD IH SCH (08:19)
[2018-12-13] MEDS: Acetylcysteine 20% Inhal Soln (4ml) INH SCH ×2 (09:00→19:02)
--- NOTE | 2018-12-13 15:59 | CP.PCM.HP ---
History of Present Illness - History of Present Illness History of Present Illness: 68 y/o F, with multiple chronic medical conditions, including: COPD/Asthma, Emphysema, DMII, Hypercholesterolemia, HTN, O/A. Pt was admitted to [facility], Telemetry floor from 12/07/18 to 12/12/18 with Dx of COPD Exacerbation, Hypoxemia, DMII, Hyperglycemia, HTN. On 12/12/18, Pt condition improved and was transferred to TCU unit to continue adjustment of steroids, Insulin and to benefit from PT. Worsening symptoms: Weakness, Aggravated factor: ADL's, walking/exercise. Present on Admission - Present on Admission Any Indicators Present on Admission: Yes History of Uncontrolled Diabetes: Yes Review of Systems - Constitutional Constitutional: Weakness - EENT Eyes: Other (negative) Ears: Other (negative) Nose/Mouth/Throat: Other (negative) - Cardiovascular Cardiovascular: Other (negative) - Respiratory Respiratory: Cough, Chest Congestion - Gastrointestinal Gastrointestinal: Other (negative) - Genitourinary Genitourinary: Other (negative) - Musculoskeletal Musculoskeletal: Arthralgias - Integumentary Integumentary: Other (negative) - Neurological Neurological: Other (negative) - Psychiatric Psychiatric: Other (negative) - Endocrine Endocrine: Other (negative) - Hematologic/Lymphatic Hematologic: Other (negative) Past Patient History - Infectious Disease Hx of Infectious Diseases: None - Past Medical History & Family History Past Medical History?: Yes - Past Social History Smoking Status: Never Smoked Alcohol: None Drugs: Denies Home Situation {Lives}: Alone - CARDIAC Hx Cardiac Disorders: Yes Hx Hypercholesterolemia: Yes Hx Hypertension: Yes Hx Pacemaker: No - PULMONARY Hx Respiratory Disorders: Yes Hx Asthma: Yes Hx Bronchitis: Yes Hx Chronic Obstructive Pulmonary Disease (COPD): Yes Hx Emphysema: Yes Hx Pneumonia: Yes - NEUROLOGICAL Hx Neurological Disorder: No - HEENT Hx HEENT Problems: Yes Hx Cataracts: Yes - RENAL Hx Chronic Kidney Disease: No - ENDOCRINE/METABOLIC Hx Endocrine Disorders: Yes Hx Diabetes Mellitus Type 2: Yes - HEMATOLOGICAL/ONCOLOGICAL Hx Blood Disorders: Yes Hx AIDS: No Hx Anemia: Yes Hx Blood Transfusions: Yes Hx Blood Transfusion Reaction: No Hx Human Immunodeficiency Virus (HIV): No - INTEGUMENTARY Hx Dermatological Problems: No - MUSCULOSKELETAL/RHEUMATOLOGICAL Hx Musculoskeletal Disorders: Yes Hx Arthritis: Yes Hx Falls: No - GASTROINTESTINAL Hx Gastrointestinal Disorders: Yes Hx Diverticulitis: Yes - GENITOURINARY/GYNECOLOGICAL Hx Genitourinary Disorders: Yes (S/P Sling procedure for cystoceles) - PSYCHIATRIC Hx Psychophysiologic Disorder: No Hx Emotional Abuse: No Hx Physical Abuse: No Hx Substance Use: No - SURGICAL HISTORY Hx Surgeries: Yes Hx Appendectomy: No Hx Cataract Extraction: Yes Hx Carotid Endarterectomy: No Hx Cholecystectomy: No Hx Coronary Artery Bypass Graft: No Hx Coronary Stent: No Hx Hysterectomy: Yes Hx Joint Replacement: Yes (L TKR 2003) Hx Orthopedic Surgery: Yes ( lumbar Fusion with laminectomy 2013. S/P Diskec álvaro x2. L ankle sx.) Hx Tonsillectomy: No Other/Comment: Laparoscopic Ventral Hernia repair. Colonoscopy 6 months ago. - ANESTHESIA Hx Anesthesia: Yes Hx Anesthesia Reactions: No Hx Malignant Hyperthermia: No Meds Allergies/Adverse Reactions: Allergies Allergy/AdvReac Type Severity Reaction Status Date / Time No Known Allergies Allergy Verified 10/20/15 14:05 Physical Exam - Constitutional Appears: No Acute Distress - Head Exam Head Exam: NORMAL INSPECTION - Eye Exam Eye Exam: PERRL - ENT Exam ENT Exam: Normal Exam - Neck Exam Neck exam: Positive for: Normal Inspection - Respiratory Exam Respiratory Exam: Decreased Breath Sounds (b/l), Rhonchi (scattered) - Cardiovascular Exam Cardiovascular Exam: REGULAR RHYTHM - GI/Abdominal Exam GI & Abdominal Exam: Normal Bowel Sounds, Soft - Extremities Exam Extremities exam: Positive for: normal inspection - Back Exam Back exam: NORMAL INSPECTION - Neurological Exam Neurological exam: Alert, Oriented x3 - Psychiatric Exam Psychiatric exam: Normal Mood - Skin Skin Exam: Warm Results - Vital Signs Recent Vital Signs: Last Vital Signs Temp 98.0 F 12/13/18 15:39 Pulse 60 12/13/18 15:39 Resp 20 12/13/18 15:39 BP 116/71 12/13/18 15:39 Pulse Ox 95 12/13/18 15:39 reviewed J.PAnisa - Labs Result Diagrams: 12/13/18 06:30 12/13/18 06:30 Labs: Laboratory Results - last 24 hr 12/13/18 12/13/18 12/13/18 05:39 06:30 06:30 WBC 14.5 H RBC 4.36 Hgb 12.3 Hct 36.7 MCV 84.3 MCH 28.3 MCHC 33.6 RDW 14.7 H Plt Count 292 Sodium 131 L Potassium 3.2 L Chloride 89 L Carbon Dioxide 28 Anion Gap 17 BUN 30 H Creatinine 0.7 Est GFR ( Amer) > 60 Est GFR (Non-Af Amer) > 60 POC Glucose (mg/dL) 285 H Random Glucose 281 H Calcium 10.0 12/13/18 10:55 WBC RBC Hgb Hct MCV MCH MCHC RDW Plt Count Sodium Potassium Chloride Carbon Dioxide Anion Gap BUN Creatinine Est GFR ( Amer) Est GFR (Non-Af Amer) POC Glucose (mg/dL) 251 H Random Glucose Calcium reviewed J.P. Assessment & Plan (1) COPD exacerbation Status: Acute Priority: High (2) Hyperglycemia Status: Acute Priority: High (3) DM type 2 (diabetes mellitus, type 2) Status: Chronic Priority: High (4) HTN (hypertension) Status: Chronic Priority: Medium - Assessment and Plan (Free Text) Plan: Continue O2 NC, Solu-Medrol, Pulmicort, Singulair, Mucinex, Tessalon Perles, Humalog, Glucophage, Neurontin, Cardizen, Cozaar, Hydrodiuril and rest of tx. PT/OT eval. - Date & Time Date: 12/13/18 Time: 10:40
[2018-12-13] MEDS ORDERED: Potassium Chloride 20 mEq ER Tab PO ONE (19:45)
[2018-12-13] MEDS: Pantoprazole 40 mg EC Tab PO SCH (21:05)
[2018-12-13] MEDS: Alum-Mag Hydrox-Simethicone Susp (30 mL) PO PRN (21:05)
[2018-12-14] MEDS: MethylPREDNISolone 40 mg Vial IV SCH ×2 (00:42→09:02)
[2018-12-14] MEDS: Albuterol-Ipratrop 3 mg / 0.5 (3 ml) UD INH SCH ×4 (01:00→19:18)
[2018-12-14 06:51] LABS: BLOOD UREA NITROGEN 39 mg/dl (7-17); CALCIUM 9.3 mg/dL (8.4-10.2); GFR NON-AFRICAN AMERICAN > 60
[2018-12-14] MEDS: Insulin Lispro (humaLOG) 100 Units/ml Inj SC SCH ×4 (06:54→22:20)
[2018-12-14] MEDS: Acetylcysteine 20% Inhal Soln (4ml) INH SCH ×2 (07:54→19:17)
[2018-12-14] MEDS: guaiFENesin-DM 600-30 mg ER Tab PO SCH ×3 (09:04→21:34)
[2018-12-14] MEDS: diltiaZEM 180 mg/24 Hours CD Cap PO SCH (09:06)
[2018-12-14] MEDS: Pantoprazole 40 mg EC Tab PO SCH (09:06)
--- NOTE | 2018-12-14 14:53 | CP.PCM.PN ---
Subjective - Date & Time of Evaluation Date of Evaluation: 12/14/18 Time of Evaluation: 13:20 - Subjective Subjective: F/O COPD Exacerbation. Pt awake, no SOB, no cough, as per nurse, Pt ambulated in hallways by Therapist with slow gate and weak. Objective - Vital Signs/Intake and Output Vital Signs (last 24 hours): Temp Pulse Resp BP Pulse Ox 97.8 F 62 20 115/71 94 L 12/14/18 08:29 12/14/18 09:06 12/14/18 08:29 12/14/18 09:06 12/14/18 08:29 - Medications Medications: Current Medications Acetaminophen (Tylenol 325mg Tab) 650 mg PO Q6 PRN PRN Reason: Pain, moderate (4-7) Acetylcysteine (Acetylcysteine 20%) 2 ml INH RBID [facility] Last Admin: 12/14/18 07:54 Dose: 2 ml Al Hydrox/Mg Hydrox/Simethicone (Maalox Plus 30 Ml) 30 ml PO Q4 PRN PRN Reason: Indigestion / Heartburn Last Admin: 12/13/18 21:05 Dose: 30 ml Albuterol/Ipratropium (Duoneb 3 Mg/0.5 Mg (3 Ml) Ud) 3 ml INH RQ6 [facility] Last Admin: 12/14/18 13:45 Dose: Not Given Atorvastatin Calcium (Lipitor) 40 mg PO DAILY [facility] Last Admin: 12/14/18 09:05 Dose: 40 mg Benzonatate (Tessalon Perles) 100 mg PO Q8 PRN PRN Reason: Cough Last Admin: 12/13/18 08:17 Dose: 100 mg Budesonide (Pulmicort Respules) 0.5 mg IH RBID [facility] Last Admin: 12/13/18 08:19 Dose: 0.5 mg Diltiazem HCl (Cardizem Cd) 360 mg PO DAILY [facility] Last Admin: 12/14/18 09:06 Dose: 360 mg Guaifenesin/Dextromethorphan (Mucinex-Dm 600-30 Mg) 1 tab PO Q12 [facility] Last Admin: 12/14/18 09:04 Dose: 1 tab Hydrochlorothiazide (Hydrodiuril) 25 mg PO DAILY [facility] Last Admin: 12/14/18 09:04 Dose: 25 mg Insulin Human Lispro (Humalog) 0 units SC [facility]; Protocol Last Admin: 12/14/18 11:30 Dose: 4 units Lorazepam (Ativan) 2 mg PO HS [facility] Last Admin: 12/13/18 21:16 Dose: 2 mg Losartan Potassium (Cozaar) 100 mg PO DAILY [facility] Last Admin: 12/14/18 09:05 Dose: 100 mg Metformin HCl (Glucophage) 500 mg PO BID [facility] Last Admin: 12/14/18 09:05 Dose: 500 mg Methylprednisolone (Solu-Medrol) 30 mg IVP Q8 [facility] Montelukast Sodium (Singulair) 10 mg PO DAILY@1700 [facility] Pantoprazole Sodium (Protonix Ec Tab) 40 mg PO DAILY [facility] Last Admin: 12/14/18 09:06 Dose: 40 mg Potassium Chloride (K-Dur 20 Meq Er Tab) 20 meq PO DAILY [facility] - Labs Labs: 12/13/18 06:30 12/14/18 05:50 - Constitutional Appears: No Acute Distress - Head Exam Head Exam: NORMAL INSPECTION - Eye Exam Eye Exam: PERRL - ENT Exam ENT Exam: Normal Exam - Neck Exam Neck Exam: Normal Inspection - Respiratory Exam Respiratory Exam: Decreased Breath Sounds (at bases), Rhonchi (b/l) - Cardiovascular Exam Cardiovascular Exam: REGULAR RHYTHM - GI/Abdominal Exam GI & Abdominal Exam: Soft, Normal Bowel Sounds - Extremities Exam Extremities Exam: Normal Inspection - Back Exam Back Exam: NORMAL INSPECTION - Neurological Exam Neurological Exam: Alert, Oriented x3 Additional comments: Slow gait - Psychiatric Exam Psychiatric exam: Normal Mood Assessment and Plan (1) COPD exacerbation Status: Acute (2) Hyperglycemia Status: Acute (3) DM type 2 (diabetes mellitus, type 2) Status: Chronic (4) HTN (hypertension) Status: Chronic - Assessment and Plan (Free Text) Plan: Taper Solu-Medrol and continue rest of Tx.
[2018-12-14] MEDS: MethylPREDNISolone 40 mg Vial IVP SCH (16:59)
[2018-12-14] MEDS: Potassium Chloride 20 mEq ER Tab PO SCH (17:00)
[2018-12-14] MEDS ORDERED: methylPREDNISolone 30 MG in Sodium Chloride 0.9% 50 ML IV SCH (17:00)
[2018-12-14] MEDS: Budesonide 0.5 mg/2 ml Inhal Susp UD IH SCH (19:18)
[2018-12-15] MEDS: Albuterol-Ipratrop 3 mg / 0.5 (3 ml) UD INH SCH ×4 (01:02→19:46)
[2018-12-15] MEDS: MethylPREDNISolone 40 mg Vial IVP SCH ×3 (01:57→17:04)
[2018-12-15] MEDS: Insulin Lispro (humaLOG) 100 Units/ml Inj SC SCH ×4 (06:45→22:04)
[2018-12-15] MEDS: Budesonide 0.5 mg/2 ml Inhal Susp UD IH SCH ×2 (07:18→19:46)
[2018-12-15] MEDS: Acetylcysteine 20% Inhal Soln (4ml) INH SCH ×2 (07:18→19:46)
[2018-12-15] MEDS: guaiFENesin-DM 600-30 mg ER Tab PO SCH ×2 (08:29→20:17)
[2018-12-15] MEDS: diltiaZEM 180 mg/24 Hours CD Cap PO SCH (08:29)
[2018-12-15] MEDS: Pantoprazole 40 mg EC Tab PO SCH (08:30)
[2018-12-15] MEDS: Potassium Chloride 20 mEq ER Tab PO SCH (08:30)
--- NOTE | 2018-12-15 12:22 | CP.PCM.PN ---
Subjective - Date & Time of Evaluation Date of Evaluation: 12/15/18 Time of Evaluation: 12:00 - Subjective Subjective: F/U COPD Exacerbation. Awake, no c/o SOB, occasional cough. Objective - Vital Signs/Intake and Output Vital Signs (last 24 hours): Temp Pulse Resp BP Pulse Ox 97.5 F L 65 20 155/69 H 100 12/15/18 07:50 12/15/18 08:30 12/15/18 07:50 12/15/18 08:30 12/15/18 07:50 - Medications Medications: Current Medications Acetaminophen (Tylenol 325mg Tab) 650 mg PO Q6 PRN PRN Reason: Pain, moderate (4-7) Acetylcysteine (Acetylcysteine 20%) 2 ml INH RBID [facility] Last Admin: 12/15/18 07:18 Dose: 2 ml Al Hydrox/Mg Hydrox/Simethicone (Maalox Plus 30 Ml) 30 ml PO Q4 PRN PRN Reason: Indigestion / Heartburn Last Admin: 12/13/18 21:05 Dose: 30 ml Albuterol/Ipratropium (Duoneb 3 Mg/0.5 Mg (3 Ml) Ud) 3 ml INH RQ6 [facility] Last Admin: 12/15/18 07:18 Dose: 3 ml Atorvastatin Calcium (Lipitor) 40 mg PO DAILY [facility] Last Admin: 12/15/18 08:29 Dose: 40 mg Benzonatate (Tessalon Perles) 100 mg PO Q8 PRN PRN Reason: Cough Last Admin: 12/15/18 08:29 Dose: 100 mg Budesonide (Pulmicort Respules) 0.5 mg IH RBID [facility] Last Admin: 12/15/18 07:18 Dose: 0.5 mg Diltiazem HCl (Cardizem Cd) 360 mg PO DAILY [facility] Last Admin: 12/15/18 08:29 Dose: 360 mg Guaifenesin/Dextromethorphan (Mucinex-Dm 600-30 Mg) 1 tab PO Q12 [facility] Last Admin: 12/15/18 08:29 Dose: 1 tab Hydrochlorothiazide (Hydrodiuril) 25 mg PO DAILY [facility] Last Admin: 12/15/18 08:30 Dose: 25 mg Insulin Human Lispro (Humalog) 0 units SC [facility]; Protocol Last Admin: 12/15/18 11:57 Dose: 4 units Lorazepam (Ativan) 2 mg PO HS [facility] Last Admin: 12/14/18 21:33 Dose: 2 mg Losartan Potassium (Cozaar) 100 mg PO DAILY [facility] Last Admin: 12/15/18 08:30 Dose: 100 mg Metformin HCl (Glucophage) 500 mg PO BID [facility] Last Admin: 12/15/18 08:29 Dose: 500 mg Methylprednisolone (Solu-Medrol) 30 mg IVP Q8 [facility] Last Admin: 12/15/18 08:28 Dose: 30 mg Montelukast Sodium (Singulair) 10 mg PO DAILY@1700 [facility] Last Admin: 12/14/18 17:00 Dose: 10 mg Pantoprazole Sodium (Protonix Ec Tab) 40 mg PO DAILY [facility] Last Admin: 12/15/18 08:30 Dose: 40 mg Potassium Chloride (K-Dur 20 Meq Er Tab) 20 meq PO DAILY [facility] Last Admin: 12/15/18 08:30 Dose: 20 meq - Labs Labs: 12/13/18 06:30 12/14/18 05:50 - Constitutional Appears: No Acute Distress - Head Exam Head Exam: NORMAL INSPECTION - Eye Exam Eye Exam: PERRL - ENT Exam ENT Exam: Normal Exam - Neck Exam Neck Exam: Normal Inspection - Respiratory Exam Respiratory Exam: Decreased Breath Sounds (at bases), Rhonchi (b/l) - Cardiovascular Exam Cardiovascular Exam: REGULAR RHYTHM - GI/Abdominal Exam GI & Abdominal Exam: Soft, Normal Bowel Sounds - Extremities Exam Extremities Exam: Normal Inspection - Back Exam Back Exam: NORMAL INSPECTION - Neurological Exam Neurological Exam: Altered, Oriented x3 Additional comments: slow gait - Psychiatric Exam Psychiatric exam: Normal Mood - Skin Skin Exam: Warm Assessment and Plan (1) COPD exacerbation Status: Acute (2) Hyperglycemia Status: Acute (3) DM type 2 (diabetes mellitus, type 2) Status: Chronic (4) HTN (hypertension) Status: Chronic - Assessment and Plan (Free Text) Plan: Continue Duoneb, Solu-Medrol, Pulmicort, Singulair, Mucinex, and rest of Tx.
[2018-12-15] MEDS: Alum-Mag Hydrox-Simethicone Susp (30 mL) PO PRN ×2 (18:04→22:00)
[2018-12-16] MEDS: MethylPREDNISolone 40 mg Vial IVP SCH ×3 (00:08→22:07)
[2018-12-16] MEDS: Albuterol-Ipratrop 3 mg / 0.5 (3 ml) UD INH SCH ×4 (02:31→19:01)
[2018-12-16] MEDS: Insulin Lispro (humaLOG) 100 Units/ml Inj SC SCH ×4 (07:15→22:08)
[2018-12-16] MEDS: diltiaZEM 180 mg/24 Hours CD Cap PO SCH (08:33)
[2018-12-16] MEDS: Potassium Chloride 20 mEq ER Tab PO SCH (08:36)
[2018-12-16] MEDS: Pantoprazole 40 mg EC Tab PO SCH (08:36)
[2018-12-16] MEDS: guaiFENesin-DM 600-30 mg ER Tab PO SCH ×2 (08:36→22:09)
[2018-12-16] MEDS: Budesonide 0.5 mg/2 ml Inhal Susp UD IH SCH ×3 (08:51→19:01)
[2018-12-16] MEDS: Acetylcysteine 20% Inhal Soln (4ml) INH SCH ×2 (08:52→19:01)
--- NOTE | 2018-12-16 16:18 | CP.PCM.PN ---
Subjective - Date & Time of Evaluation Date of Evaluation: 12/16/18 Time of Evaluation: 15:30 - Subjective Subjective: F/U COPD Exacerbation Breathing better, occasional cough, no SOB, no chest congestion. Objective - Vital Signs/Intake and Output Vital Signs (last 24 hours): Temp Pulse Resp BP Pulse Ox 98.0 F 69 20 120/66 94 L 12/16/18 16:04 12/16/18 16:04 12/16/18 16:04 12/16/18 16:04 12/16/18 16:04 - Medications Medications: Current Medications Acetaminophen (Tylenol 325mg Tab) 650 mg PO Q6 PRN PRN Reason: Pain, moderate (4-7) Acetylcysteine (Acetylcysteine 20%) 2 ml INH RBID [facility] Last Admin: 12/16/18 08:52 Dose: 2 ml Al Hydrox/Mg Hydrox/Simethicone (Maalox Plus 30 Ml) 30 ml PO Q4 PRN PRN Reason: Indigestion / Heartburn Last Admin: 12/15/18 22:00 Dose: 30 ml Albuterol/Ipratropium (Duoneb 3 Mg/0.5 Mg (3 Ml) Ud) 3 ml INH RQ6 [facility] Last Admin: 12/16/18 13:13 Dose: 3 ml Atorvastatin Calcium (Lipitor) 40 mg PO DAILY [facility] Last Admin: 12/16/18 08:36 Dose: 40 mg Benzonatate (Tessalon Perles) 100 mg PO Q8 PRN PRN Reason: Cough Last Admin: 12/15/18 08:29 Dose: 100 mg Budesonide (Pulmicort Respules) 0.5 mg IH RBID [facility] Last Admin: 12/16/18 08:52 Dose: 0.5 mg Diltiazem HCl (Cardizem Cd) 360 mg PO DAILY [facility] Last Admin: 12/16/18 08:33 Dose: 360 mg Guaifenesin/Dextromethorphan (Mucinex-Dm 600-30 Mg) 1 tab PO Q12 [facility] Last Admin: 12/16/18 08:36 Dose: 1 tab Hydrochlorothiazide (Hydrodiuril) 25 mg PO DAILY [facility] Last Admin: 12/16/18 08:36 Dose: 25 mg Insulin Human Lispro (Humalog) 0 units SC [facility]; Protocol Last Admin: 12/16/18 12:02 Dose: 4 units Lorazepam (Ativan) 2 mg PO HS [facility] Last Admin: 12/15/18 21:58 Dose: 2 mg Losartan Potassium (Cozaar) 100 mg PO DAILY [facility] Last Admin: 12/16/18 08:36 Dose: 100 mg Metformin HCl (Glucophage) 500 mg PO BID [facility] Last Admin: 12/16/18 08:36 Dose: 500 mg Methylprednisolone (Solu-Medrol) 30 mg IVP Q12 [facility] Montelukast Sodium (Singulair) 10 mg PO DAILY@1700 [facility] Last Admin: 12/15/18 17:04 Dose: 10 mg Pantoprazole Sodium (Protonix Ec Tab) 40 mg PO DAILY [facility] Last Admin: 12/16/18 08:36 Dose: 40 mg Potassium Chloride (K-Dur 20 Meq Er Tab) 20 meq PO DAILY [facility] Last Admin: 12/16/18 08:36 Dose: 20 meq - Labs Labs: 12/13/18 06:30 12/14/18 05:50 - Constitutional Appears: Younger Than Stated Age - Head Exam Head Exam: NORMAL INSPECTION - Eye Exam Eye Exam: PERRL - ENT Exam ENT Exam: Normal Exam - Neck Exam Neck Exam: Normal Inspection - Respiratory Exam Respiratory Exam: Decreased Breath Sounds (at bases), Rhonchi (scattered) - Cardiovascular Exam Cardiovascular Exam: REGULAR RHYTHM - GI/Abdominal Exam GI & Abdominal Exam: Soft, Normal Bowel Sounds - Extremities Exam Extremities Exam: Normal Inspection - Back Exam Back Exam: NORMAL INSPECTION - Neurological Exam Neurological Exam: Alert, Oriented x3 Additional comments: Slow gait - Psychiatric Exam Psychiatric exam: Normal Mood - Skin Skin Exam: Warm Assessment and Plan (1) COPD exacerbation Status: Acute (2) Hyperglycemia Status: Acute (3) DM type 2 (diabetes mellitus, type 2) Status: Chronic (4) HTN (hypertension) Status: Chronic - Assessment and Plan (Free Text) Plan: Continue current Tx, taper Steroid, CXR PA/Lateral.
[2018-12-16] MEDS: Alum-Mag Hydrox-Simethicone Susp (30 mL) PO PRN ×2 (16:46→22:10)
[2018-12-17] MEDS: Albuterol-Ipratrop 3 mg / 0.5 (3 ml) UD INH SCH ×5 (01:09→19:05)
[2018-12-17 06:48] LABS: HEMOGLOBIN 11.8 g/dL (12.0-16.0); MEAN CELL VOLUME 84.6 fl (81.0-99.0); MEAN CORPUSCULAR HEMOGLOBIN 28.2 pg (27.0-31.0); MEAN CORPUSCULAR HGB CONC 33.3 g/dL (33.0-37.0); RBC 4.18 Mil/uL (3.80-5.20); RED CELL DISTRIBUTION WIDTH 15.2 % (11.5-14.5); WHITE BLOOD COUNT 16.2 K/uL (4.8-10.8)
[2018-12-17] MEDS: Budesonide 0.5 mg/2 ml Inhal Susp UD IH SCH ×4 (06:50→19:05)
[2018-12-17] MEDS: Insulin Lispro (humaLOG) 100 Units/ml Inj SC SCH ×4 (06:51→21:11)
[2018-12-17] MEDS: Acetylcysteine 20% Inhal Soln (4ml) INH SCH ×3 (06:55→19:05)
[2018-12-17 07:15] LABS: ALB/GLOB RATIO 1.3 (1.0-2.1); ALBUMIN 3.2 g/dL (3.5-5.0); ALT/SGPT 31 U/L (9-52); AST/SGOT 19 U/L (14-36); BLOOD UREA NITROGEN 37 mg/dl (7-17); CALCIUM 9.7 mg/dL (8.4-10.2); GFR NON-AFRICAN AMERICAN > 60
[2018-12-17] MEDS: diltiaZEM 180 mg/24 Hours CD Cap PO SCH (08:14)
[2018-12-17] MEDS: MethylPREDNISolone 40 mg Vial IVP SCH (08:14)
[2018-12-17] MEDS: guaiFENesin-DM 600-30 mg ER Tab PO SCH ×2 (08:14→20:29)
[2018-12-17] MEDS: Pantoprazole 40 mg EC Tab PO SCH (08:16)
[2018-12-17] MEDS: Potassium Chloride 20 mEq ER Tab PO SCH (08:16)
--- NOTE | 2018-12-17 14:02 | RAD ---
Date of service: 12/17/2018 HISTORY: Dx: COPD ; f/u CXR COMPARISON: 12/07/2018 two view chest. TECHNIQUE: Chest PA and lateral views FINDINGS: LUNGS: No active pulmonary disease. PLEURA: No significant pleural effusion identified. No pneumothorax apparent. CARDIOVASCULAR: No aortic atherosclerotic calcification present. Normal cardiac size. No pulmonary vascular congestion. OSSEOUS STRUCTURES: No significant abnormalities. VISUALIZED UPPER ABDOMEN: Normal. OTHER FINDINGS: None. IMPRESSION: No active disease. No significant interval change compared to the prior examination(s).
--- NOTE | 2018-12-17 14:07 | CP.PCM.PN ---
Subjective - Date & Time of Evaluation Date of Evaluation: 12/17/18 Time of Evaluation: 09:30 - Subjective Subjective: F/U COPD Exacerbation. No SOB, less cough, no chest congestion. Objective - Vital Signs/Intake and Output Vital Signs (last 24 hours): Temp Pulse Resp BP Pulse Ox 97.8 F 64 19 140/82 98 12/17/18 08:14 12/17/18 13:00 12/17/18 08:14 12/17/18 10:16 12/17/18 13:00 - Medications Medications: Current Medications Acetaminophen (Tylenol 325mg Tab) 650 mg PO Q6 PRN PRN Reason: Pain, moderate (4-7) Acetylcysteine (Acetylcysteine 20%) 2 ml INH RBID [facility] Last Admin: 12/17/18 06:58 Dose: 2 ml Al Hydrox/Mg Hydrox/Simethicone (Maalox Plus 30 Ml) 30 ml PO Q4 PRN PRN Reason: Indigestion / Heartburn Last Admin: 12/16/18 22:10 Dose: 30 ml Albuterol/Ipratropium (Duoneb 3 Mg/0.5 Mg (3 Ml) Ud) 3 ml INH RQ6 [facility] Last Admin: 12/17/18 06:58 Dose: 3 ml Atorvastatin Calcium (Lipitor) 40 mg PO DAILY [facility] Last Admin: 12/17/18 08:16 Dose: 40 mg Benzonatate (Tessalon Perles) 100 mg PO Q8 PRN PRN Reason: Cough Last Admin: 12/17/18 08:16 Dose: 100 mg Budesonide (Pulmicort Respules) 0.5 mg IH RBID [facility] Last Admin: 12/17/18 06:59 Dose: 0.5 mg Diltiazem HCl (Cardizem Cd) 360 mg PO DAILY [facility] Last Admin: 12/17/18 08:14 Dose: 360 mg Guaifenesin/Dextromethorphan (Mucinex-Dm 600-30 Mg) 1 tab PO Q12 [facility] Last Admin: 12/17/18 08:14 Dose: 1 tab Hydrochlorothiazide (Hydrodiuril) 25 mg PO DAILY [facility] Last Admin: 12/17/18 08:14 Dose: 25 mg Insulin Human Lispro (Humalog) 0 units SC [facility]; Protocol Last Admin: 12/17/18 11:33 Dose: 3 units Lorazepam (Ativan) 2 mg PO HS [facility] Last Admin: 12/16/18 22:07 Dose: 2 mg Losartan Potassium (Cozaar) 100 mg PO DAILY [facility] Last Admin: 12/17/18 08:15 Dose: 100 mg Metformin HCl (Glucophage) 500 mg PO BID [facility] Last Admin: 12/17/18 08:14 Dose: 500 mg Methylprednisolone (Solu-Medrol) 30 mg IVP Q12 [facility] Last Admin: 12/17/18 08:14 Dose: 30 mg Montelukast Sodium (Singulair) 10 mg PO DAILY@1700 [facility] Last Admin: 12/16/18 16:48 Dose: 10 mg Pantoprazole Sodium (Protonix Ec Tab) 40 mg PO DAILY [facility] Last Admin: 12/17/18 08:16 Dose: 40 mg Potassium Chloride (K-Dur 20 Meq Er Tab) 20 meq PO DAILY [facility] Last Admin: 12/17/18 08:16 Dose: 20 meq - Labs Labs: 12/17/18 05:50 12/17/18 05:50 - Constitutional Appears: No Acute Distress - Head Exam Head Exam: NORMAL INSPECTION - Eye Exam Eye Exam: PERRL - ENT Exam ENT Exam: Normal Exam - Neck Exam Neck Exam: Normal Inspection - Respiratory Exam Respiratory Exam: Decreased Breath Sounds (at bases), Rhonchi (scattered) - Cardiovascular Exam Cardiovascular Exam: REGULAR RHYTHM - GI/Abdominal Exam GI & Abdominal Exam: Soft, Normal Bowel Sounds - Extremities Exam Extremities Exam: Normal Inspection - Back Exam Back Exam: NORMAL INSPECTION - Neurological Exam Neurological Exam: Alert, Oriented x3 Additional comments: slow gait - Psychiatric Exam Psychiatric exam: Normal Mood - Skin Skin Exam: Warm Assessment and Plan (1) COPD exacerbation Status: Acute (2) Hyperglycemia Status: Acute (3) DM type 2 (diabetes mellitus, type 2) Status: Chronic (4) HTN (hypertension) Status: Chronic - Assessment and Plan (Free Text) Plan: Continue Prednisone, Tessalon Perles, Mucinex DM, Singulair, Humalog and rest of Tx.
[2018-12-17] MEDS: Alum-Mag Hydrox-Simethicone Susp (30 mL) PO PRN (21:06)
[2018-12-18] MEDS: Albuterol-Ipratrop 3 mg / 0.5 (3 ml) UD INH SCH ×3 (02:20→13:34)
[2018-12-18] MEDS: Insulin Lispro (humaLOG) 100 Units/ml Inj SC SCH ×4 (06:55→21:59)
[2018-12-18] MEDS: Acetylcysteine 20% Inhal Soln (4ml) INH SCH ×2 (07:18→19:19)
[2018-12-18] MEDS: Budesonide 0.5 mg/2 ml Inhal Susp UD IH SCH ×2 (07:18→19:26)
[2018-12-18] MEDS: guaiFENesin-DM 600-30 mg ER Tab PO SCH ×2 (08:20→22:00)
[2018-12-18] MEDS: diltiaZEM 180 mg/24 Hours CD Cap PO SCH (08:20)
[2018-12-18] MEDS: Pantoprazole 40 mg EC Tab PO SCH (08:21)
[2018-12-18] MEDS: Potassium Chloride 20 mEq ER Tab PO SCH (08:21)
[2018-12-18 15:56] VITALS: RESP 18
[2018-12-19] MEDS: Albuterol-Ipratrop 3 mg / 0.5 (3 ml) UD INH SCH ×3 (01:56→13:49)
[2018-12-19] MEDS: Insulin Lispro (humaLOG) 100 Units/ml Inj SC SCH ×2 (06:41→13:13)
[2018-12-19] MEDS: Budesonide 0.5 mg/2 ml Inhal Susp UD IH SCH (07:10)
[2018-12-19] MEDS: Acetylcysteine 20% Inhal Soln (4ml) INH SCH (07:10)
[2018-12-19 08:07] VITALS: BP 121/73; PULSE 56; TEMP 97.8; O2SAT 95
[2018-12-19] MEDS: Potassium Chloride 20 mEq ER Tab PO SCH (08:09)
[2018-12-19] MEDS: Pantoprazole 40 mg EC Tab PO SCH (08:09)
[2018-12-19] MEDS: guaiFENesin-DM 600-30 mg ER Tab PO SCH (08:10)
[2018-12-19] MEDS: diltiaZEM 180 mg/24 Hours CD Cap PO SCH (08:11)
--- NOTE | 2018-12-19 13:23 | CP.PCM.DIS ---
Provider - Provider Date of Admission: 12/12/18 21:38 Attending physician: Juan Brar MD Primary care physician: ANGELA FAMILY PROVIDER Consults: 12/13/18 01:32 Case Management Referral Routine Comment: Physician Instructions: Reason For Exam: Reason for Referral: Discharge Planning Diagnosis - Discharge Diagnosis (1) COPD exacerbation Status: Acute Priority: High (2) Hyperglycemia Status: Acute Priority: High (3) DM type 2 (diabetes mellitus, type 2) Status: Chronic Priority: High (4) HTN (hypertension) Status: Chronic Priority: Medium Hospital Course - Lab Results Lab Results: Most Recent Lab Values WBC 16.2 K/uL (4.8-10.8) H 12/17/18 05:50 RBC 4.18 Mil/uL (3.80-5.20) 12/17/18 05:50 Hgb 11.8 g/dL (12.0-16.0) L 12/17/18 05:50 Hct 35.4 % (34.0-47.0) 12/17/18 05:50 MCV 84.6 fl (81.0-99.0) 12/17/18 05:50 MCH 28.2 pg (27.0-31.0) 12/17/18 05:50 MCHC 33.3 g/dL (33.0-37.0) 12/17/18 05:50 RDW 15.2 % (11.5-14.5) H 12/17/18 05:50 Plt Count 324 K/uL (130-400) 12/17/18 05:50 Sodium 132 mmol/l (132-148) 12/17/18 05:50 Potassium 5.0 MMOL/L (3.6-5.0) 12/17/18 05:50 Chloride 91 mmol/L (98-107) L 12/17/18 05:50 Carbon Dioxide 33 mmol/L (22-30) H 12/17/18 05:50 Anion Gap 13 (10-20) 12/17/18 05:50 BUN 37 mg/dl (7-17) H 12/17/18 05:50 Creatinine 0.8 mg/dl (0.7-1.2) 12/17/18 05:50 Est GFR ( Amer) > 60 12/17/18 05:50 Est GFR (Non-Af Amer) > 60 12/17/18 05:50 POC Glucose (mg/dL) 174 mg/dL (65-110) H 12/19/18 11:13 Random Glucose 299 mg/dL (65-105) H 12/17/18 05:50 Calcium 9.7 mg/dL (8.4-10.2) 12/17/18 05:50 Total Bilirubin 0.3 mg/dl (0.2-1.3) 12/17/18 05:50 AST 19 U/L (14-36) 12/17/18 05:50 ALT 31 U/L (9-52) 12/17/18 05:50 Alkaline Phosphatase 54 U/L (38-126) 12/17/18 05:50 Total Protein 5.7 G/DL (6.3-8.2) L 12/17/18 05:50 Albumin 3.2 g/dL (3.5-5.0) L 12/17/18 05:50 Globulin 2.4 gm/dL (2.2-3.9) 12/17/18 05:50 Albumin/Globulin Ratio 1.3 (1.0-2.1) 12/17/18 05:50 Discharge Exam - Head Exam Head Exam: NORMAL INSPECTION Discharge Plan - Follow Up Plan Condition: GOOD Disposition: HOME/ ROUTINE Instructions: Preventing Falls in the Older Adult, Exacerbation of COPD (DC), Metformin Referrals: Lon Zimmerman MD [Staff Provider] -
== END 2018-12-19 14:10 | disposition home or self-care (01) | DRG 192 ==
LOC: H.TCU 21:38
PROVIDERS: ADMIT Internal Medicine Pulmonary Disease; ATTEND Internal Medicine Pulmonary Disease
PROC: F07Z9FZ Gait Training/Functional Ambulation Treatment using Assistive, Adaptive, Supportive or Protective Equipment (ICD-10-PCS; principal; 2018-12-12)
PROC: F08Z4FZ Home Management Treatment using Assistive, Adaptive, Supportive or Protective Equipment (ICD-10-PCS; 2018-12-12)
PROC: F07M6FZ Therapeutic Exercise Treatment of Musculoskeletal System - Whole Body using Assistive, Adaptive, Supportive or Protective Equipment (ICD-10-PCS; 2018-12-12)
PROC: 3E0F73Z Introduction of Anti-inflammatory into Respiratory Tract, Via Natural or Artificial Opening (ICD-10-PCS; 2018-12-12)
DX: J43.9 Emphysema, unspecified (principal); E11.65 Type 2 diabetes mellitus with hyperglycemia; I10 Essential (primary) hypertension; M19.90 Unspecified osteoarthritis, unspecified site; E78.00 Pure hypercholesterolemia, unspecified; Z96.652 Presence of left artificial knee joint; Z87.01 Personal history of pneumonia (recurrent); Z79.84 Long term (current) use of oral hypoglycemic drugs; Z90.710 Acquired absence of both cervix and uterus